=== PATIENT | male | born 1935 | race Caucasian/White ===

== ENCOUNTER 2017-01-10 10:05 | Inpatient (IN) | payer OTHER ==
--- NOTE | 2017-01-09 21:51 | GHP ---
[f rep st] PREOP HISTORY AND PHYSICAL DATE OF ADMISSION: 01/10/2017 POSTOPERATIVE DIAGNOSIS: Left lower extremity chronic wound. HISTORY OF PRESENT ILLNESS: The patient is an 81-year-old man, who recently moved to [place] from [place]. He has had a chronic wound of his left foot for greater than 1 year. He has had multiple hospital admissions for cellulitis, requiring IV antibiotics. He had an angiogram in April 2016, which showed a lesion of the left SFA and popliteal arteries with less than 50% stenosis, occlusion of the PT and AT with reconstitution of the DP and PT pulses in the foot via the peroneal. He also has previously reported ABIs. MICHEL on the left is 0.59 and TBI of 0.33 and has been diagnosed with peripheral vascular disease. Most recently, he was admitted to hospital in [place] on December 12, 2016, due to altered mental status thought to be stemming from foot infection. He completed a course of IV antibiotics. He was told by a vascular surgeon that he needed an amputation, and his family chose to delay this until he move d out to [place]. Today, he denies any fevers or chills. He denies any pain to the area. He has significant peripheral neuropathy. His daughter denies any change in his health over the last week. PAST MEDICAL HISTORY: Memory loss, CHF, aortic stenosis, type 2 diabetes, chronic kidney disease, a trial fibrillation, on chronic anticoagulation, BPH, hypertension, GERD, peripheral vascular disease . 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 ALLERGIES: Codeine. FAMILY HISTORY: Noncontributory to wound. SOCIAL HISTORY: He is a former smoker. No alcohol or recreational drug use. He lives at [facility]. He has a daughter is very involved in his care. He recently moved from [place] to be close to family. REVIEW OF SYSTEMS: The patient has memory loss and is unable to give an accurate review of systems. PHYSICAL EXAMINATION: GENERAL: Well-developed, well-nourished, elderly man, in no acute distress, accompanied by daughter. HEENT: Normocephalic, atraumatic. No hearing deficits. Pupils equal and round. No scleral icterus. Mucous membranes moist. NECK: Trachea midline. RESPIRATORY: No inc reased work of breathing. Clear to auscultation bilaterally. CARDIOVASCULAR: 1+ peripheral edema left lower extremity. Unable to palpate PT and DP pulses on the left lower extremity, dopplerable. SKIN: Significant wound over the dorsum of his left lower extremity with necrosis of the left 2nd toe. There is also disarticulation of the toe at the PIP joint. There is a foul odor to the wound and significant slough and eschar in the base. There is a mild amount of surrounding erythema. He is nontender. PSYCHIATRIC: Very pleasant. Mood and affect normal. NEUROLOGIC: Significant memor y loss. Unable to answer questions appropriately. MUSCULOSKELETAL: Wheelchair bound. Right BKA. IMPRESSION AND PLAN: The patient is an 81-year-old man with extensive left lower extremity wound se condary to peripheral vascular disease. He will require operative debridement of the wound. At thi s time, we recommend transmetatarsal amputation, but it is very likely that he would require a below -the-knee amputation. His daughter would like to attempt limb salvage at this point. We will take him to the operating room for left transmetatarsal amputation. Risks were discussed including, but not limited to, heart attack, stroke, blood clots, or . We also discussed risk of infection, b leeding, delayed wound healing, or need for additional amputation. His daughter understands the ris ks, and they both would like to proceed. He will also need to be off anticoagulation for the proced ure. This will be an inpatient procedure. The patient was additionally seen by Dr. Stefanie Vuong. /[id number]/MODL
[2017-01-10] MEDS ORDERED: ceFAZolin 2 GM/DEXTROSE 100 ML IV ONE (10:30)
[2017-01-10] MEDS ORDERED: NS 1,000 ML IV ONE (10:48)
[2017-01-10] MEDS ORDERED: LIDOCAINE 1% 2 ML INJ ID PRN (10:48)
[2017-01-10 11:23] LABS: % IMMATURE GRANULYOCYTES 0.7 % (0.0-1.1); ABSOLUTE IMMATURE GRANULOCYTES 0.06 10^3/uL (0.00-0.10); ADD DIFF? NO; ADD MORPH? NO; ADD SCAN? NO; ATYPICAL LYMPHOCYTE FLAG 0 (0-99); FRAGMENT RBC FLAG 0 (0-99); HEMATOCRIT 30.9 % (40.0-51.0); HEMOGLOBIN 9.6 g/dL (13.7-17.5); LEFT SHIFT FLG 20 (0-99); LIPEMIA HEMOLYSIS FLAG 80 (0-99); MEAN CELL HEMOGLOBIN 26.2 pg (27.9-34.1); MEAN CELL HEMOGLOBIN CONCENTR. 31.1 g/dL (32.4-36.7); MEAN CELL VOLUME 84.4 fL (81.5-99.8); MEAN PLATELET VOLUME 9.9 fL (8.7-11.7); PLATELET CLUMPS FLAG 0 (0-99); PLATELET COUNT 160 10^3/uL (150-400); RED BLOOD CELL COUNT 3.66 10^6/uL (4.40-6.38); RED CELL DISTRIBUTION WIDTH 15.7 % (11.5-15.2)
--- NOTE | 2017-01-10 11:23 | PDHPUP ---
History & Physical Update H&P update statement: This history and physical update is based on an assessment of the patient which was completed after admission or registration (within 24 hours), but prior to the surgery/procedure. H&P update: H&P reviewed & patient examined H&P changes: stopped warfarin
[2017-01-10] MEDS ORDERED: BUPIVACAINE 0.5% 30 ML SDV ONE (11:29)
[2017-01-10 11:30] LABS: INR 1.69 (0.83-1.16); PROTIME(PATIENT) 19.9 SEC (12.0-15.0)
--- NOTE | 2017-01-10 11:37 | PDANEPAE ---
ANE History of Present Illness here for left foot tm amputation ANE Past Medical History - Cardiovascular History Hx Hypertension: Yes Hx Arrhythmias: Yes Hx Coronary Artery / Peripheral Vascular Disease: Yes Hx CHF / Valvular Disease: Yes Cardiovascular History Comment: moderate - Pulmonary History Hx COPD: No Hx Asthma/Reactive Airway Disease: No Hx Recent Upper Respiratory Infection: No Hx Oxygen in Use at Home: No Hx Sleep Apnea: No - Neurologic History Hx Cerebrovascular Accident: No Hx Seizures: No Hx Dementia: Yes - Endocrine History Hx Diabetes: Yes Hypothyroid: No Hyperthyroid: No Obesity: mild - Renal History Hx Renal Disorders: Yes - Liver History Hx Hepatic Disorders: No ANE Review of Systems - Exercise capacity Exercise capacity: <4 METS ANE Patient History - Allergies Allergies/Adverse Reactions: codeine Allergy (Verified 01/09/17 17:31) - Home Medications Home Medications: ACIDOPHILUS 01/09/17 [Last Taken 01/09/17] Aspirin 325 mg (*) 01/09/17 [Last Taken Unknown] Atorvastatin Calcium 01/09/17 [Last Taken 01/09/17] Donepezil HCl 01/09/17 [Last Taken 01/09/17] Furosemide 01/09/17 [Last Taken 01/09/17] GABAPENTIN 01/09/17 [Last Taken Unknown] GLIPIZIDE 01/09/17 [Last Taken 01/09/17] Herbals/Supplements -Info Only 01/09/17 [Last Taken 01/09/17] Lidocaine 2% 01/09/17 [Last Taken Unknown] Lubricant 0.5-0.9% Eye Drops 01/09/17 [Last Taken Unknown] Melatonin 01/09/17 [Last Taken Unknown] Metoprolol Tartrate 01/09/17 [Last Taken Unknown] Nystatin Powder 01/09/17 [Last Taken Unknown] Oxycodone HCl 01/09/17 [Last Taken 01/09/17] Polyethylene Glycol 3350 01/09/17 [Last Taken 01/09/17] Potassium Chloride 01/09/17 [Last Taken 01/09/17] Ventolin Hfa Inhaler 01/09/17 [Last Taken Unknown] Warfarin Sodium 01/09/17 [Last Taken 01/06/17] hydrALAZINE 01/09/17 [Last Taken 01/09/17] - NPO status NPO Since - Liquids (Date): 01/09/17 NPO Since - Liquids (Time): 23:00 NPO Since - Solids (Date): 01/09/17 NPO Since - Solids (Time): 23:00 ANE Labs/Vital Signs - Labs Result Diagrams: 01/10/17 10:59 01/10/17 10:54 - Vital Signs Blood Pressure: 120/69 Heart Rate: 90 Respiratory Rate: 16 O2 Sat (%): 92 Height: 180.34 cm Weight: 93.168 kg ANE Physical Exam - Airway Neck exam: FROM Mouth exam: dentures - Pulmonary Pulmonary: no respiratory distress - Cardiovascular Cardiovascular: irregularly irregular - ASA Status ASA Status: III ANE Anesthesia Plan Anesthesia Plan: general endotracheal anesthesia
[2017-01-10 11:39] LABS: ANION GAP 10 mEq/L (8-16); CALCIUM 9.5 mg/dL (8.5-10.4); CARBON DIOXIDE 24 mEq/l (22-31); CHLORIDE 99 mEq/L (97-110); CREATININE 1.5 mg/dL (0.7-1.3); GLOMERULAR FILTRATION RATE 45; GLUCOSE 115 mg/dL (70-100); POTASSIUM 4.7 mEq/L (3.5-5.2); SODIUM 133 mEq/L (134-144)
[2017-01-10] MEDS ORDERED: PROPOFOL/EMULSION 500 MG/50 ML BOTTLE IV ONE (12:06)
[2017-01-10] MEDS ORDERED: fentaNYL 100 MCG/2 ML INJ ONE ×6 (12:06→14:19)
[2017-01-10] MEDS ORDERED: NALOXONE HCL 0.4 MG/ML INJ IVP PRN ×2 (12:53→13:48)
--- NOTE | 2017-01-10 12:55 | POSTOPPROG ---
Post Op Note Date of Operation: 01/10/17 Surgeon: Stefanie Vuong Quality Systems Engineer: yoandy Anesthesiologist: mame Anesthesia: GET(General Endotracheal) Pre-op Diagnosis: LLE chronic wound, PVD Post-op Diagnosis: same Indication: 81yo M with chronic LLE ulcer, no arterial bypass options Procedure: L TMA Findings: large dorsal foot ulcer. Inf/Abcess present in the surg proc area at time of surgery?: Yes Depth: Deep Incisional (Fascial) EBL: 50-100 Drains: Wound Vac Specimen(s): L TMA Bone margin Culture
[2017-01-10] MEDS ORDERED: ACETAMINOPHEN 325 MG TAB PO PRN (12:57)
[2017-01-10] MEDS ORDERED: diphenhydrAMINE 25 MG CAP PO PRN (12:57)
[2017-01-10] MEDS ORDERED: ONDANSETRON DISINTEGRATING 4 MG TAB PO PRN (12:57)
[2017-01-10] MEDS ORDERED: ONDANSETRON 4 MG/2 ML VIAL IVP PRN (12:57)
[2017-01-10] MEDS ORDERED: D50W 25 GM/50 ML SYR IVP PRN (12:59)
[2017-01-10] MEDS ORDERED: D10W 250 ML BAG IV PRN (13:20)
[2017-01-10] MEDS ORDERED: HYDROmorphONE/DILAUDID 1 MG/ML SYR ONE ×2 (13:29→14:42)
[2017-01-10] MEDS: fentaNYL 100 MCG/2 ML INJ IVP PRN ×6 (13:35→15:00)
[2017-01-10] MEDS ORDERED: HYDROmorphONE/DILAUDID 1 MG/ML SYR IVP PRN (13:48)
[2017-01-10] MEDS: HYDROmorphONE/DILAUDID 1 MG/ML SYR IVP PRN ×8 (13:55→20:15)
[2017-01-10] MEDS: HYDROCODONE/APAP 5/325 TAB PO PRN ×2 (15:22→20:28)
--- NOTE | 2017-01-10 15:47 | CPEKG ---
Heart Rate: 92 RR Interval: 652 QRSD Interval: 116 QT Interval: 372 QTC Interval: 461 QRS Eudora: -48 T Wave Eudora: 122 EKG Severity - ABNORMAL ECG - EKG Impression: ATRIAL FIBRILLATION, V-RATE 69-104 EKG Impression: LVH WITH IVCD, LAD AND SECONDARY REPOL ABNRM Electronically Signed By: Sha Deng 10-Jan-2017 16:56:03
[2017-01-10] MEDS: DEXMEDETOMIDINE HCL 400 MCG in NS 100 ML IV SCH ×2 (16:20→21:13)
[2017-01-10] MEDS: INSULIN LISPRO 100 UNIT/ML SC SCH (16:58)
--- NOTE | 2017-01-10 17:37 | SOAPPROG ---
SOCON[facility] Progress Note Assessment/Plan: Assessment: I anticipate this to be an inpatient procedure due to wound vac therapy, as well as multiple comorbidities such as CHF, aortic stenosis, atrial fibrillation , type 2 DM, etc. Objective: Vital Signs Temp Pulse Resp BP Pulse Ox 37.2 C 115 H 16 111/82 H 95 01/10/17 13:16 01/10/17 13:16 01/10/17 14:55 01/10/17 14:46 01/10/17 15:11 Microbiology 01/10/17 12:51 Gram Stain - Final Foot - Bone Laboratory Results 01/10/17 10:59 01/10/17 10:54 01/09/17 01/10/17 01/11/17 05:59 05:59 05:59 Intake Total 50 Balance 50 PT 19.9 SEC (12.0-15.0) H 01/10/17 10:57 INR 1.69 (0.83-1.16) H 01/10/17 10:57 ICD10 Worksheet Patient Problems: Problems Problem Status Onset Chronic wound of extremity Acute - ICD10 Problem Qualifiers (1) Chronic wound of extremity
[2017-01-10] MEDS ORDERED: CARBOXYMETHYLCELLULOSE SODIUM EACHEYE PRN (19:02)
[2017-01-10] MEDS ORDERED: LIDOCAINE 2% JELLY 5 ML TUBE TP PRN (19:02)
[2017-01-10] MEDS ORDERED: CARBOXYMETHYLCELLULOSE 0.5% 0.4 ML DROPERETTE EACHEYE PRN (19:12)
[2017-01-10] MEDS ORDERED: CHOLECALCIFEROL VIT D3 50,000 UNIT CAP PO SCH (19:15)
[2017-01-10] MEDS ORDERED: NS 1,000 ML IV SCH (20:15)
[2017-01-10] MEDS: DONEPEZIL HCL 5 MG TAB PO SCH (20:29)
[2017-01-10] MEDS ORDERED: NON-FORMULARY NEW DRUG (Donepezil Hcl [Aricept] 10 MG) PO SCH (21:00)
[2017-01-10] MEDS ORDERED: METOPROLOL TARTRATE 25 MG TAB PO SCH (21:00)
--- NOTE | 2017-01-10 21:39 | GCON ---
[f rep st] CONSULTATION CONSULTING QUESTION: Medical management. HISTORY OF PRESENT ILLNESS: This is an 81-year-old male, recently situated for care at [facility] with a history of peripheral vascular disease, presenting today for lower extremity amp utation. Patient has had a chronic left lower extremity wound that has not been appropriately treat able by medical management. It was decided early December 2016 at a hospital in [place], that the león ent would best be suited with amputation. Patient delayed this procedure until moving to [place]. Prior to the operating room today patient was denying any fevers or chills, shortness of breath or c hest pain. Postoperative was experiencing marked pain of the surgical leg, denied chest pain, shortness of dajuan th, abdominal discomfort. PAST MEDICAL HISTORY: 1. Peripheral vascular disease. 2. Hypertension. 3. Type 2 diabetes. 4. Chronic kidney disease. 5. Atrial fibrillation on chronic anticoagulation. 6. BPH. 7. Aortic stenosis. 8. CHF. 9. Memory loss. FAMILY HISTORY: Positive for diabetes. SOCIAL HISTORY: Negative for active tobacco. No alcohol or illicit drugs. Resides at [facility]. REVIEW OF SYSTEMS: A 10-point review of systems is negative with the exception of that reported in the HPI. PHYSICAL EXAMINATION: VITAL SIGNS: Blood pressure is 94/42, preop patient is 120-130 systolic , he art rate is in the 50s, respiratory rate 27, saturating 100% on 2 L, 36.5. GENERAL: This is an eld erly male who appears sedated. HEENT: Notable for dry mucous membranes. Eye exam is negative for a ny icterus. CARDIAC: Patient is irregular with a systolic murmur. PULMONARY: Diminished breath s ounds at bilateral bases. Otherwise clear. GASTROINTESTINAL: Positive bowel sounds. ABDOMEN: So ft and nontender. MUSCULOSKELETAL: Patient has a [id number] amputation on the right. His left foot is in a post surgical boot. No edema is noted of either lower extremity. SKIN: Patient has s cattered bruising, no rashes are appreciated. NEUROLOGIC: He is sedated post anesthesia. DATA: White count 8.9, hematocrit 30.9, platelets of 160, sodium 133, creatinine 1.5, blood glucose of 115, BUN is 43, INR is 1.69. EKG, which I personally reviewed and interpreted, shows atrial fibrillation with interventricular co nduction delay. No acute ST-T changes are appreciated. ASSESSMENT AND PLAN: This is an 81-year-old male, status post transmetatarsal amputation of the lef t foot with a wound VAC. 1. Peripheral vascular disease. Patient is status post left transmetatarsal amputation. Wound VAC is in place. Primary management per Dr. Vuong and the Surgical Team. Will continue with the wound care for the wound VAC and await culture data from intraoperative specimens. Pain control currentl y with IV pain medications and a Precedex drip. 2. Atrial fibrillation. Patient is currently rate controlled. We will continue his home dosing of anticoagulation, check an INR in the morning. I am holding his beta eliud as his heart rates are well controlled currently and his blood pressures are low with systolics in the 90s. I suspect thi s is from the Precedex and as we wean that we can safely reinitiate his home beta blockade. 3. Hyponatremia acute. Suspect this may be volume related as the patient's BUN is also up. Will st art gentle hydration with normal saline overnight as patient is sedated and likely will have little p.o. intake and recheck a BMP in the morning additionally holding his home dosing of Lasix and potas sium. 4. Hypotension. Again patient's blood pressures were normal intraoperatively and lower after the i nitiation of Precedex. I suspect it is effect of the medication. We are starting a normal saline, a nd can follow his pressures overnight, MAPS are in the 50s and 60s currently. 5. Memory loss/mild cognitive impairment. Will continue patient's Aricept. 6. Diabetes. Will continue patient's glipizide daily as well as sliding scale insulin as needed. 7. Prophylaxis per surgery. 8. Diet, diabetic when patient is more alert. DISPOSITION: I expect him greater than 2 midnights as the patient is requiring postoperative recove ry time from his transmetatarsal amputation. Thank you for the consultation. I have discussed the case with Dr. Vuong. [facility] jean-paul horotn along and help manage patient's medical comorbidities. /[id number]/MODL
[2017-01-11] MEDS: DEXMEDETOMIDINE HCL 400 MCG in NS 100 ML IV SCH (01:13)
[2017-01-11] MEDS: HYDROCODONE/APAP 5/325 TAB PO PRN ×4 (01:59→21:48)
[2017-01-11 06:15] LABS: ABSOLUTE IMMATURE GRANULOCYTES 0.05 10^3/uL (0.00-0.10); ADD DIFF? NO; ADD MORPH? NO; ADD SCAN? NO; ATYPICAL LYMPHOCYTE FLAG 0 (0-99); FRAGMENT RBC FLAG 0 (0-99); HEMATOCRIT 25.9 % (40.0-51.0); HEMOGLOBIN 7.7 g/dL (13.7-17.5); LEFT SHIFT FLG 20 (0-99); LIPEMIA HEMOLYSIS FLAG 70 (0-99); MEAN CELL HEMOGLOBIN 25.9 pg (27.9-34.1); MEAN CELL HEMOGLOBIN CONCENTR. 29.7 g/dL (32.4-36.7); MEAN CELL VOLUME 87.2 fL (81.5-99.8); MEAN PLATELET VOLUME 9.6 fL (8.7-11.7); PLATELET CLUMPS FLAG 10 (0-99); PLATELET COUNT 135 10^3/uL (150-400); RED BLOOD CELL COUNT 2.97 10^6/uL (4.40-6.38); RED CELL DISTRIBUTION WIDTH 15.7 % (11.5-15.2)
[2017-01-11 06:25] LABS: INR 1.94 (0.83-1.16); PROTIME(PATIENT) 22.3 SEC (12.0-15.0)
[2017-01-11 06:36] LABS: ANION GAP 9 mEq/L (8-16); CALCIUM 8.8 mg/dL (8.5-10.4); CARBON DIOXIDE 24 mEq/l (22-31); CHLORIDE 105 mEq/L (97-110); CREATININE 1.3 mg/dL (0.7-1.3); GLOMERULAR FILTRATION RATE 53; GLUCOSE 122 mg/dL (70-100); POTASSIUM 4.3 mEq/L (3.5-5.2); SODIUM 138 mEq/L (134-144)
[2017-01-11] MEDS: POLYETHYLENE GLYCOL 3350 17 GM PKT PO SCH (07:33)
[2017-01-11] MEDS: INSULIN LISPRO 100 UNIT/ML SC SCH ×3 (07:39→18:08)
[2017-01-11] MEDS: ATORVASTATIN CALCIUM 40 MG TAB PO SCH (07:40)
[2017-01-11] MEDS: glipiZIDE 5 MG TAB PO SCH (07:40)
[2017-01-11] MEDS: FERROUS SULFATE 325 MG TAB PO SCH (07:40)
[2017-01-11] MEDS: HYDROmorphONE/DILAUDID 1 MG/ML SYR IVP PRN ×3 (08:51→15:21)
[2017-01-11] MEDS ORDERED: POTASSIUM CL 20 MEQ TAB PO SCH (09:00)
[2017-01-11] MEDS ORDERED: FUROSEMIDE 40 MG TAB PO SCH (09:00)
--- NOTE | 2017-01-11 09:04 | GOP ---
[f rep st] OPERATIVE REPORT DATE OF OPERATION: 01/10/2017 SURGEON: Stefanie Vuong MD EQUIPMENT MAINTENANCE TECH: REESE Beltran. ANESTHESIA: General. ANESTHESIOLOGIST: Ismael Caputo MD. PREOPERATIVE DIAGNOSIS: Peripheral vascular disease and necrosis of left 2nd toe with wound over dorsum of foot. POSTOPERATIVE DIAGNOSIS: Peripheral vascular disease and necrosis of left 2nd toe with wound over dorsum of foot. PROCEDURE PERFORMED: Transmetatarsal amputation left foot and application of wound VAC. FINDINGS: digital arteries were bleeding. SPECIMENS: Mid foot amputation. Margins for pathology and microbiology. ESTIMATED BLOOD LOSS: 100 cc. INDICATIONS: The patient is an 81-year-old, with multiple medical problems, who recently moved from [place]. He had been working with vascular surgery there and did not have revascularization options. He had a wound on his foot; however, by the time he moved to [place] the wound was more significant and the toe became disarticulated and black. He already has a right below-knee amputation and we are trying to do a limb salvage to assist him with transfers. He understands that a below or above-knee amputation may be needed. DESCRIPTION OF PROCEDURE: The patient was brought into the operating room, placed supine on the table, and general anesthesia was administered. His left foot and leg were prepped and draped in the usual sterile fashion. I placed a glove over the toes and the wound. The skin on the plantar surface on his foot was very healthy. I created a flap that started just beneath the toes and I brought this around over the dorsum of the foot and included a portion of the wound. I used electrocautery to dissect down through the subcutaneous tissues. The digital arteries were patent. Hemostasis was achieved. I used a periosteal elevator to elevate the tissues away from the bone. I used a saw to transect each of the bones and I submitted this to Pathology. I obtained additional margin on the 1st metatarsal and inked this and sent this to Pathology and I sent a margin of the 2nd metatarsal for microbiology. The tendons were trimmed. The wound was irrigated. I used a vilma rasp to soften the edges of the bone. The deep layer was closed with 2-0 Vicryl. I attempted to reapproximate the skin; however, there the skin was fragile on the dorsum of his foot and the sutures were pulling away. I used a currette to debride the dorsum of his foot. I placed a wound VAC over his foot. He was awakened in the operating room, extubated, transferred to PACU in stable condition. /[id number]/MODL MTDD
[2017-01-11] MEDS: WARFARIN SODIUM 2.5 MG TAB PO SCH (15:51)
--- NOTE | 2017-01-11 15:55 | HOSPPROG ---
Hospitalist Progress Note Assessment/Plan: 81 yo M with h/o PVD presenting for lower extremity amputation in setting of chronic LLE wound # PVD: s/p L TMA, wound vac in place, has prior R BKA. Pain is an issue, still requiring IV narcotic. PT/OT involved # acute encephalopathy: has had issues with agitated delerium in setting of recent surgery, pain/pain medications. Improved this am. Monitoring closely, working on redirecting # chronic a fib: rate controlled, monitoring, continued on home meds including his usual AC--INR currently 1.9 # hyponatremia: 2/2 volume depletion, resolved # hypotension: as above, resolved # dementia: at baseline, as above has been complicated by delirium # dm2: continue glipizide # anemia: monitoring in post op setting # IP Patient new to my care. Old records reviewed and summarized as above. Care plan reviewed with Dr. Cheung and multidisciplinary team on rounds. Subjective: patient having increased pain in his foot this am, was agitated and confused overnight but better this am Objective: Vital Signs Temp Pulse Resp BP Pulse Ox 36.4 C 89 20 120/56 L 100 01/11/17 07:24 01/11/17 14:40 01/11/17 07:24 01/11/17 07:24 01/11/17 14:40 Microbiology 01/10/17 12:51 Gram Stain - Final Foot - Bone 01/10/17 12:51 Mycobacterial Smear (SANCHEZ) - Final Foot - Bone Laboratory Results 01/11/17 06:00 01/11/17 06:00 01/10/17 01/11/17 01/12/17 05:59 05:59 05:59 Intake Total 1355.2 Output Total 300 Balance 1055.2 PT 22.3 SEC (12.0-15.0) H 01/11/17 06:00 INR 1.94 (0.83-1.16) H 01/11/17 06:00 awake alert nad anicteric op clear rrr no mrg cta b soft nt nd left foot in boot warm dry well perfused cognitive deficits noted but appropriate calm interactive ICD10 Worksheet Patient Problems: Problems Problem Status Onset Chronic wound of extremity Acute
--- NOTE | 2017-01-11 16:23 | SOAPPROG ---
SOAP Progress Note Assessment/Plan: Assessment: WOUND OK/ AFEBRILE/ DEMENTED Plan:PER IM 01/11/17 16:22 Objective: Vital Signs Temp Pulse Resp BP Pulse Ox 36.4 C 89 20 120/56 L 100 01/11/17 07:24 01/11/17 14:40 01/11/17 07:24 01/11/17 07:24 01/11/17 14:40 Microbiology 01/10/17 12:51 Gram Stain - Final Foot - Bone 01/10/17 12:51 Mycobacterial Smear (SANCHEZ) - Final Foot - Bone Laboratory Results 01/11/17 06:00 01/11/17 06:00 01/10/17 01/11/17 01/12/17 05:59 05:59 05:59 Intake Total 1355.2 Output Total 300 Balance 1055.2 PT 22.3 SEC (12.0-15.0) H 01/11/17 06:00 INR 1.94 (0.83-1.16) H 01/11/17 06:00 ICD10 Worksheet Patient Problems: Problems Problem Status Onset Chronic wound of extremity Acute
[2017-01-11] MEDS: oxyCODONE IR 5 MG TAB PO PRN (16:44)
[2017-01-11] MEDS: DONEPEZIL HCL 5 MG TAB PO SCH (20:46)
[2017-01-12] MEDS: HYDROCODONE/APAP 5/325 TAB PO PRN ×3 (05:09→17:32)
[2017-01-12] MEDS: HYDROmorphONE/DILAUDID 1 MG/ML SYR IVP PRN ×4 (05:52→20:17)
[2017-01-12] MEDS: oxyCODONE IR 5 MG TAB PO PRN ×3 (06:49→20:18)
[2017-01-12] MEDS: ATORVASTATIN CALCIUM 40 MG TAB PO SCH (08:33)
[2017-01-12] MEDS: FERROUS SULFATE 325 MG TAB PO SCH (08:35)
[2017-01-12] MEDS: glipiZIDE 5 MG TAB PO SCH (08:35)
[2017-01-12] MEDS: INSULIN LISPRO 100 UNIT/ML SC SCH ×3 (08:41→18:39)
[2017-01-12] MEDS: POLYETHYLENE GLYCOL 3350 17 GM PKT PO SCH (09:25)
[2017-01-12 10:36] LABS: % IMMATURE GRANULYOCYTES 0.9 % (0.0-1.1); ABSOLUTE IMMATURE GRANULOCYTES 0.06 10^3/uL (0.00-0.10); ADD DIFF? NO; ADD MORPH? NO; ADD SCAN? NO; ATYPICAL LYMPHOCYTE FLAG 0 (0-99); FRAGMENT RBC FLAG 0 (0-99); HEMATOCRIT 27.9 % (40.0-51.0); HEMOGLOBIN 8.6 g/dL (13.7-17.5); LEFT SHIFT FLG 0 (0-99); LIPEMIA HEMOLYSIS FLAG 80 (0-99); MEAN CELL HEMOGLOBIN 26.1 pg (27.9-34.1); MEAN CELL HEMOGLOBIN CONCENTR. 30.8 g/dL (32.4-36.7); MEAN CELL VOLUME 84.8 fL (81.5-99.8); MEAN PLATELET VOLUME 9.7 fL (8.7-11.7); PLATELET CLUMPS FLAG 0 (0-99); PLATELET COUNT 164 10^3/uL (150-400); RED BLOOD CELL COUNT 3.29 10^6/uL (4.40-6.38); RED CELL DISTRIBUTION WIDTH 15.4 % (11.5-15.2)
[2017-01-12 10:46] LABS: INR 1.96 (0.83-1.16); PROTIME(PATIENT) 22.4 SEC (12.0-15.0)
--- NOTE | 2017-01-12 13:19 | SOAPPROG ---
SOAP Progress Note Assessment/Plan: Assessment: WOUND OK/ AFEBRILE/ DEMENTED Plan:PER IM 01/11/17 16:22 01/12/17 13:18 PAIN CONTROL GOOD/ WOUND VAC IN PLACE/ AFEBRILE/ CONTINUE LOCAL CARE/ POOR PEDAL ART FLOW Objective: Vital Signs Temp Pulse Resp BP Pulse Ox 36.8 C 85 18 145/73 H 96 01/12/17 07:31 01/12/17 07:31 01/12/17 07:31 01/12/17 07:31 01/12/17 07:31 Microbiology 01/10/17 12:51 Gram Stain - Final Foot - Bone 01/10/17 12:51 Mycobacterial Smear (SANCHEZ) - Final Foot - Bone Laboratory Results 01/12/17 10:22 01/11/17 06:00 01/11/17 01/12/17 01/13/17 05:59 05:59 05:59 Intake Total 1355.2 900 Output Total 300 1050 125 Balance 1055.2 -150 -125 PT 22.4 SEC (12.0-15.0) H 01/12/17 10:22 INR 1.96 (0.83-1.16) H 01/12/17 10:22 ICD10 Worksheet Patient Problems: Problems Problem Status Onset Chronic wound of extremity Acute
--- NOTE | 2017-01-12 13:23 | HOSPPROG ---
Hospitalist Progress Note Assessment/Plan: 81 yo M with h/o PVD presenting for lower extremity amputation in setting of chronic LLE wound # PVD: s/p L TMA, wound vac in place, has prior R BKA. Pain is an issue, still requiring IV narcotic. PT/OT involved. # acute encephalopathy: has had issues with agitated delirium in setting of recent surgery, pain/pain medications. Improved and off of precedex currently # chronic a fib: rate controlled, monitoring, continued on home meds including his usual AC--INR currently 1.9 # hyponatremia: 2/2 volume depletion, resolved # hypotension: as above, resolved # dementia: at baseline, as above has been complicated by delirium # dm2: continue glipizide # anemia: monitoring in post op setting # IP--general surgery is primary, he likely will be a good candidate for rehab Subjective: no significant overnight events, patient is somnolent but feeling a bit better this am Objective: Vital Signs Temp Pulse Resp BP Pulse Ox 36.8 C 85 18 145/73 H 96 01/12/17 07:31 01/12/17 07:31 01/12/17 07:31 01/12/17 07:31 01/12/17 07:31 Microbiology 01/10/17 12:51 Gram Stain - Final Foot - Bone 01/10/17 12:51 Mycobacterial Smear (SANCHEZ) - Final Foot - Bone Laboratory Results 01/12/17 10:22 01/11/17 06:00 01/11/17 01/12/17 01/13/17 05:59 05:59 05:59 Intake Total 1355.2 900 Output Total 300 1050 125 Balance 1055.2 -150 -125 PT 22.4 SEC (12.0-15.0) H 01/12/17 10:22 INR 1.96 (0.83-1.16) H 01/12/17 10:22 awake alert nad anicteric op clear rrr no mrg cta b soft nt nd left foot in boot warm dry well perfused cognitive deficits noted but appropriate calm interactive ICD10 Worksheet Patient Problems: Problems Problem Status Onset Chronic wound of extremity Acute
[2017-01-12] MEDS ORDERED: WARFARIN SODIUM 5 MG TAB PO SCH (15:00)
[2017-01-12] MEDS: ERTAPENEM 1 GM in NS 100 ML IV SCH (16:29)
[2017-01-12] MEDS: WARFARIN SODIUM 2.5 MG TAB PO SCH (17:28)
[2017-01-12] MEDS: DONEPEZIL HCL 5 MG TAB PO SCH (20:18)
[2017-01-13] MEDS: HYDROCODONE/APAP 5/325 TAB PO PRN ×3 (00:20→23:07)
[2017-01-13] MEDS: HYDROmorphONE/DILAUDID 1 MG/ML SYR IVP PRN ×5 (00:23→14:30)
[2017-01-13] MEDS: oxyCODONE IR 5 MG TAB PO PRN ×3 (05:49→21:04)
[2017-01-13] MEDS: ATORVASTATIN CALCIUM 40 MG TAB PO SCH (08:01)
[2017-01-13] MEDS: FERROUS SULFATE 325 MG TAB PO SCH (08:02)
[2017-01-13] MEDS: POLYETHYLENE GLYCOL 3350 17 GM PKT PO SCH (08:02)
[2017-01-13] MEDS: glipiZIDE 5 MG TAB PO SCH (08:02)
[2017-01-13] MEDS: INSULIN LISPRO 100 UNIT/ML SC SCH ×3 (08:16→17:59)
[2017-01-13] MEDS: ERTAPENEM 1 GM in NS 100 ML IV SCH (08:35)
--- NOTE | 2017-01-13 09:33 | WOCRNPDOC ---
DIMITRY Advanced Assessment Note - Skin Integrity Problem, Advanced Assess Left Heel Pressure Injury Dressing Type: Open to Air Exudate Amount: None Zoe Wound Tissue: Painful/Tender Site Measurement - Head-to-Toe Length X Width X Depth (cm): 2.5x8x0 Pressure Injury Stage: Deep Tissue Injury (DTI) Pressure Injury Present on Admit: No Skin Integrity Problem Comment: Deep Tissue injury extends from heel laterally toward the deep tissue injury on the lateral foot. Tissue is intact at this time. Left Metatarsal Head Surgical Wound Dressing Type: Black Vac Foam (x1), Wound Vac Dressing Description: Clean/Dry, Intact Exudate Amount: Minimal Exudate Characteristic(s): Serosanguinous Integumentary Issue Intervention: Dressing Changed Zoe Wound Tissue: Macerated, Denuded Wound Bed Color: [place], Red, Yellow Wound Bed Constitution: Smooth Tissue, Subcutaneous Fat Skin Integrity Problem Comment: Wound edges along medial and lateral surgical wound are wet with compromised skin and tissue out to 2 cm. Wound bed is red with minimal granulating tissue. Vac changed with Julianna DOWLING. One piece of black foam to wound bed and it was bridged up to mid mukherjee over drape. Zoe wound skin/tissue was draped and then applied to suction at -125 mm Hg continous with no leaks. Next Vac change Wed. Left Medial Ankle Pressure Injury Dressing Type: Open to Air Exudate Amount: Minimal Exudate Characteristic(s): Serosanguinous Integumentary Issue Intervention: Dressing Changed Wound Bed Constitution: Smooth Tissue Site Measurement - Head-to-Toe Length X Width X Depth (cm): 5x5x0.1 Pressure Injury Stage: Deep Tissue Injury (DTI) Pressure Injury Present on Admit: No Skin Integrity Problem Comment: Evolving Deep tissue injury on medial malleolus prominence. This area is opening and is currently presenting as a partial thickness opening with areas of DTI still intact. Covered with [employer]. Offloading boot applied to entire foot. Left Lateral Foot Pressure Injury Dressing Type: Open to Air Exudate Amount: None Integumentary Issue Intervention: Dressing Applied Site Measurement - Head-to-Toe Length X Width X Depth (cm): 5.7x4.3x0 Pressure Injury Stage: Deep Tissue Injury (DTI) Pressure Injury Present on Admit: No Skin Integrity Problem Comment: Tissue intact at this time. Will recheck on Fri. during vac change. Reported all findings to BRAD LatriceMalcolm and Julianna DOWLING was present for exam. Left Calf Dressing Type: Allevyn Life Exudate Amount: Minimal Exudate Characteristic(s): Serosanguinous Integumentary Issue Intervention: Visualized Under Dressing Site Measurement - Head-to-Toe Length X Width X Depth (cm): 7x4x0.1 Skin Integrity Problem Comment: Partial thickness wound of unknown etiology. No sign of infection. No concerns.
[2017-01-13] MEDS ORDERED: HYDROmorphONE/DILAUDID 1 MG/ML SYR IVP ONE (10:00)
[2017-01-13 12:04] LABS: INR 2.36 (0.83-1.16)
[2017-01-13] MEDS: PIPERACILLIN/TAZO 3.375 GM/DEX 50 ML IV SCH ×3 (12:16→23:07)
--- NOTE | 2017-01-13 12:17 | SOAPPROG ---
SOAP Progress Note Assessment/Plan: Assessment: 81yo M POD #3 s/p L TMA, multiple comorbidities including dementia, afib, , traumatic R BKA Pain significantly worse with dressing change Wound vac change MWF - changed today with Lucinda WOCN New DTI medial malleolus, lateral foot and heel - Must wear offloading boot at all times Culture with strep, proteus and pseudomonas - on Zosyn Comorbidities managed by hospitalists Path pending Discussed c Dr. Victoria S: having pain in left heel. slept well O: laying in bed, comfortable, NAD No increased WOB R BKA no wounds No peripheral edema LLE New DTI left medial malleolus, lateral foot and heel. When I entered the room, offloading boot was in the bed but not in place Wound vac removed. No active bleeding. No exposed bone. Granulation tissue in the base, but color was not robust red, more of a dusky skinner/pink. Pain in L heel during vac change Objective: Vital Signs Temp Pulse Resp BP Pulse Ox 36.8 C 83 18 140/73 H 91 L 01/13/17 08:00 01/13/17 08:00 01/13/17 08:00 01/13/17 08:00 01/13/17 08:00 Microbiology 01/10/17 12:51 Gram Stain - Final Foot - Bone 01/10/17 12:51 Mycobacterial Smear (SANCHEZ) - Final Foot - Bone Laboratory Results 01/12/17 10:22 01/11/17 06:00 01/12/17 01/13/17 01/14/17 05:59 05:59 05:59 Intake Total 900 1360 Output Total 1050 1050 Balance -150 310 PT 26.0 SEC (12.0-15.0) H 01/13/17 11:30 INR 2.36 (0.83-1.16) H 01/13/17 11:30 ICD10 Worksheet Patient Problems: Problems Problem Status Onset Chronic wound of extremity Acute - ICD10 Problem Qualifiers (1) Chronic wound of extremity
[2017-01-13] MEDS ORDERED: TEARS/DEXTRAN 70/HYPROMELLOSE 15 ML OPHT.BTL EACHEYE PRN (13:39)
--- NOTE | 2017-01-13 13:43 | HOSPPROG ---
Hospitalist Progress Note Assessment/Plan: 81 yo M with h/o PVD presenting for lower extremity amputation in setting of chronic LLE wound # PVD: s/p L TMA, wound vac in place, has prior R BKA. Pain is an issue, still requiring IV narcotic. PT/OT involved. # chronic lower extremity wound: now s/p amputation as above but wound growing pseudomonas, proteus and strep--transitioned from invanz to zosyn for pseudomonal coverage. Given amputation unclear how long therapy should continue and will ask ID to weigh in on abx after dc. # acute encephalopathy: has had issues with agitated delirium in setting of recent surgery, pain/pain medications. Improved and largely back to baseline. # chronic a fib: rate controlled, monitoring, continued on home meds including his usual AC--INR has been subtherapeutic, will ask pharmacy to manage # hyponatremia: 2/2 volume depletion, resolved # hypotension: as above, resolved # dementia: at baseline, as above has been complicated by delirium # dm2: continue glipizide # anemia: monitoring in post op setting # IP--general surgery is primary, he likely will be a good candidate for rehab Subjective: no significant overnight events, patient notes pain is still poorly controlled, no other issues, eating well Objective: Vital Signs Temp Pulse Resp BP Pulse Ox 36.8 C 83 18 140/73 H 91 L 01/13/17 08:00 01/13/17 08:00 01/13/17 08:00 01/13/17 08:00 01/13/17 08:00 Microbiology 01/10/17 12:51 Gram Stain - Final Foot - Bone 01/10/17 12:51 Mycobacterial Smear (SANCHEZ) - Final Foot - Bone Laboratory Results 01/12/17 10:22 01/11/17 06:00 01/12/17 01/13/17 01/14/17 05:59 05:59 05:59 Intake Total 900 1360 Output Total 1050 1050 Balance -150 310 PT 26.0 SEC (12.0-15.0) H 01/13/17 11:30 INR 2.36 (0.83-1.16) H 01/13/17 11:30 awake alert nad anicteric op clear rrr no mrg cta b soft nt nd left foot in boot warm dry well perfused cognitive deficits noted but appropriate calm interactive ICD10 Worksheet Patient Problems: Problems Problem Status Onset Chronic wound of extremity Acute
[2017-01-13] MEDS ORDERED: WARFARIN SODIUM 2.5 MG TAB PO ONE (16:00)
[2017-01-13] MEDS: DONEPEZIL HCL 5 MG TAB PO SCH (20:53)
[2017-01-14] MEDS: oxyCODONE IR 5 MG TAB PO PRN ×4 (05:10→21:20)
[2017-01-14] MEDS: PIPERACILLIN/TAZO 3.375 GM/DEX 50 ML IV SCH ×3 (05:10→17:48)
[2017-01-14 05:52] LABS: INR 3.49 (0.83-1.16); PROTIME(PATIENT) 35.6 SEC (12.0-15.0)
[2017-01-14] MEDS: INSULIN LISPRO 100 UNIT/ML SC SCH ×3 (07:56→18:44)
[2017-01-14] MEDS: glipiZIDE 5 MG TAB PO SCH (08:21)
[2017-01-14] MEDS: ATORVASTATIN CALCIUM 40 MG TAB PO SCH (08:21)
[2017-01-14] MEDS: FERROUS SULFATE 325 MG TAB PO SCH (08:21)
[2017-01-14] MEDS: POLYETHYLENE GLYCOL 3350 17 GM PKT PO SCH (08:24)
--- NOTE | 2017-01-14 09:49 | SOAPPROG ---
SOAP Progress Note Assessment/Plan: Assessment: WOUND OK/ AFEBRILE/ DEMENTED Plan:PER IM 01/11/17 16:22 01/12/17 13:18 PAIN CONTROL GOOD/ WOUND VAC IN PLACE/ AFEBRILE/ CONTINUE LOCAL CARE/ POOR PEDAL ART FLOW 01/14/17 09:48 VERY COMFORTABLE TODAY/WOUND VAC IN PLACE/MARGINAL HEALING ON WOUND INSPECTION YESTERDAY/ Objective: Vital Signs Temp Pulse Resp BP Pulse Ox 36.5 C 89 14 144/73 H 93 01/13/17 23:21 01/14/17 08:00 01/14/17 08:00 01/14/17 08:00 01/14/17 08:00 Microbiology 01/10/17 12:51 Gram Stain - Final Foot - Bone Laboratory Results 01/12/17 10:22 01/11/17 06:00 01/13/17 01/14/17 01/15/17 05:59 05:59 05:59 Intake Total 1360 300 Output Total 1050 100 Balance 310 200 PT 35.6 SEC (12.0-15.0) H D 01/14/17 05:32 INR 3.49 (0.83-1.16) H 01/14/17 05:32 ICD10 Worksheet Patient Problems: Problems Problem Status Onset Chronic wound of extremity Acute
--- NOTE | 2017-01-14 11:17 | GCON ---
[f rep st] CONSULTATION INFECTIOUS DISEASE CONSULTATION DATE OF CONSULTATION: 01/14/2017 REFERRING PHYSICIAN: Sabrina Hercules MD REASON FOR CONSULTATION: Left foot wound status post amputation, for help in management regarding a ntibiotics. CHIEF COMPLAINT: Left foot wound infection. HISTORY OF PRESENT ILLNESS: This is an 81-year-old male with a past medical history signi ficant for CHF, type 2 diabetes, chronic kidney disease, hypertension, peripheral vascular disease, who apparently has had a chronic left foot infection for greater than 1 year. He has recently moved here to [place] from [place]. Apparently, he had multiple foot infections requiring antibiotics in the past. He cannot tell me what antibiotics he has been on in the past. On January 10 he underw ent transmetatarsal amputation. Cultures from that are polymicrobial with rare Proteus mirabilis, r are Pseudomonas, and rare group B strep. The pathology is pending. He was previously on Invanz. Sarah abreu is currently on Zosyn therapy and Infectious Disease is now consulted for evaluation and managemen t regarding antibiotics. REVIEW OF SYSTEMS: GENERAL: Denied any fevers or shaking chills. No headaches. EYES: No change in vision. ENT: No sore throat, difficulty swallowing, ear pain, or ear drainage. CARDIOVASCULAR: Denies any chest pain or rapid heartbeat. RESPIRATORY: Denies any shortness of breath, cough, or sputum production. ABDOMEN: No nausea, vomiting, abdominal pain, diarrhea. : Intermittent bur astrid with urination, none now. BACK: Denies any back pain. LOWER EXTREMITIES: Denies any numbnes s or tingling of the extremities. MUSCULOSKELETAL: Denies any joint pain. SKIN: As above. Rest of 10-point review of systems essentially negative, except above. PAST MEDICAL HISTORY: Significant for type 2 diabetes, chronic kidney disease, hypertension, periph eral vascular disease, GERD, atrial fibrillation, CHF, aortic stenosis, memory loss. PAST SURGICAL HISTORY: Significant for right BKA secondary to trauma, laminectomy. ALLERGIES: Codeine. FAMILY HISTORY: Reviewed and found to be noncontributory. SOCIAL HISTORY: He is a former smoker. Does not drink any alcohol. Lives at [facility]. Recently moved from [place] to [place]. MEDICATIONS: As per SEP. PHYSICAL EXAMINATION: VITAL SIGNS: Temperature current 36.5, pulse is 89, blood pressure 144/73, s aturations are 93% on room air, respiratory rate is 14. GENERAL: Patient is sitting up in the wendi r, in no acute respiratory distress. Awake, alert. HEENT: Eyes: Pupils are reactive to light. T here is no conjunctival injection noted. Oropharynx is clear. He has upper and lower dentures. No candidiasis or oral lesions. CARDIOVASCULAR: S1, S2. Irregular rate and rhythm. He has a soft s ystolic murmur present. RESPIRATORY: Sounds clear to auscultate bilaterally. No rhonchi or rales appreciated. ABDOMEN: Positive bowel sounds in all 4 quadrants. Soft, nontender, nondistended. E XTREMITIES: Right BKA with well healed incision site without erythema. Left lower extremity with a left TMA with a wound VAC in place. No erythema on the leg that I could appreciate. LABORATORY DATA: White blood cell count is 6.5, hemoglobin 8.6, platelets are 154, neutrophil count is 84%. INR 2.4. Last creatinine was 1.3. Sodium 138, potassium 4.3, chloride 105, bicarb is 24, BUN is 42, glucose is 122. Microbiology is reviewed as above. No imaging has been done. 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 PLAN: Cultures with polymicrobial organisms including Proteus, Pseudomonas, group A strep. The pat ient is currently on Zosyn. Would reassess his creatinine to see if Zosyn therapy can be bumped up. If his creatinine has improved, would ideally put him on 4.5 g q.6. We will continue antimicrobia l therapy for now. Await pathology to assess if distal margins are clear. If clear margins, then w ould likely only need a short course of therapy. Thank you very much for the opportunity to care for your patient in consultation. /[id number]/MODL
--- NOTE | 2017-01-14 13:43 | HOSPPROG ---
Hospitalist Progress Note Assessment/Plan: 81 yo M with h/o PVD presenting for lower extremity amputation in setting of chronic LLE wound. This is my first encounter, chart reviewed. D/W Dr Perry. # PVD: s/p L TMA, wound vac in place, has prior R BKA. Pain is an issue, still requiring IV narcotic. PT/OT involved. # chronic lower extremity wound: now s/p amputation as above but wound growing pseudomonas, proteus and strep--transitioned from invanz to zosyn for pseudomonal coverage. Given amputation unclear how long therapy should continue. Appreciate ID consult. Check labs. # acute encephalopathy: has had issues with agitated delirium in setting of recent surgery, pain/pain medications. Improved and largely back to baseline. # chronic a fib: rate controlled, monitoring, continued on home meds including his usual AC--INR has been subtherapeutic, pharmacy to manage # hyponatremia: 2/2 volume depletion, resolved # hypotension: as above, resolved # dementia: at baseline, as above has been complicated by delirium # dm2: continue glipizide # anemia: monitoring in post op setting # IP--general surgery is primary, he likely will be a good candidate for rehab Subjective: Up in chair. Some pain. Some confusion. Objective: Vital Signs Temp Pulse Resp BP Pulse Ox 36.5 C 89 14 144/73 H 93 01/13/17 23:21 01/14/17 08:00 01/14/17 08:00 01/14/17 08:00 01/14/17 08:00 Microbiology 01/10/17 12:51 Gram Stain - Final Foot - Bone Laboratory Results 01/12/17 10:22 01/11/17 06:00 01/13/17 01/14/17 01/15/17 05:59 05:59 05:59 Intake Total 1360 300 Output Total 1050 100 Balance 310 200 PT 35.6 SEC (12.0-15.0) H D 01/14/17 05:32 INR 3.49 (0.83-1.16) H 01/14/17 05:32 - Physical Exam Constitutional: appears nourished, chronically ill appearing, obese Eyes: PERRL, anicteric sclera, EOMI Ears, Nose, Mouth, Throat: moist mucous membranes, hearing normal, ears appear normal Cardiovascular: No JVD, No tachycardia, No bradycardia Respiratory: no respiratory distress, no rales or rhonchi, reduced air movement Gastrointestinal: No tenderness, No ascites, No guarding Skin: warm, normal color, No erythema Musculoskeletal: no joint effusions, muscular tenderness, generalized weakness Psychiatric: not anxious, not encephalopathic, poor insight, poor judgement, poor memory ICD10 Worksheet Patient Problems: Problems Problem Status Onset Chronic wound of extremity Acute
[2017-01-14] MEDS: DONEPEZIL HCL 5 MG TAB PO SCH (21:20)
[2017-01-15] MEDS: PIPERACILLIN/TAZO 3.375 GM/DEX 50 ML IV SCH ×3 (00:02→11:37)
[2017-01-15] MEDS: oxyCODONE IR 5 MG TAB PO PRN ×4 (00:48→21:41)
[2017-01-15] MEDS: HYDROmorphONE/DILAUDID 1 MG/ML SYR IVP PRN ×2 (00:48→19:54)
[2017-01-15 04:40] LABS: % IMMATURE GRANULYOCYTES 0.9 % (0.0-1.1); ABSOLUTE IMMATURE GRANULOCYTES 0.05 10^3/uL (0.00-0.10); ADD DIFF? NO; ADD MORPH? NO; ADD SCAN? NO; ATYPICAL LYMPHOCYTE FLAG 0 (0-99); FRAGMENT RBC FLAG 0 (0-99); HEMATOCRIT 26.5 % (40.0-51.0); HEMOGLOBIN 7.9 g/dL (13.7-17.5); LEFT SHIFT FLG 10 (0-99); LIPEMIA HEMOLYSIS FLAG 70 (0-99); MEAN CELL HEMOGLOBIN 25.8 pg (27.9-34.1); MEAN CELL HEMOGLOBIN CONCENTR. 29.8 g/dL (32.4-36.7); MEAN CELL VOLUME 86.6 fL (81.5-99.8); MEAN PLATELET VOLUME 9.3 fL (8.7-11.7); PLATELET CLUMPS FLAG 0 (0-99); PLATELET COUNT 170 10^3/uL (150-400); RED BLOOD CELL COUNT 3.06 10^6/uL (4.40-6.38); RED CELL DISTRIBUTION WIDTH 15.2 % (11.5-15.2)
[2017-01-15 04:53] LABS: INR 2.61 (0.83-1.16); PROTIME(PATIENT) 28.2 SEC (12.0-15.0)
[2017-01-15 05:06] LABS: ALANINE AMINOTRANSFERASE 44 IU/L (21-72); ALBUMIN 2.4 g/dL (3.5-5.0); ALKALINE PHOSPHATASE 111 IU/L (38-126); ANION GAP 10 mEq/L (8-16); ASPARTATE AMINOTRANSFERASE 38 IU/L (17-59); BILIRUBIN,TOTAL 0.7 mg/dL (0.1-1.4); CALCIUM 8.9 mg/dL (8.5-10.4); CARBON DIOXIDE 23 mEq/l (22-31); CHLORIDE 104 mEq/L (97-110); CREATININE 1.3 mg/dL (0.7-1.3); GLOMERULAR FILTRATION RATE 53; GLUCOSE 85 mg/dL (70-100); POTASSIUM 4.2 mEq/L (3.5-5.2); SODIUM 137 mEq/L (134-144)
--- NOTE | 2017-01-15 08:51 | HOSPPROG ---
Hospitalist Progress Note Assessment/Plan: Patient is a 81-year-old male who has a history of peripheral vascular disease. He had a lower extremity amputation due to a chronic lower leg extremity wound. This is my 1st encounter with the patient. Chart reviewed. Reviewed his care with Dr Burnette. *Severe PVD POD #5 for l transmetatarsal amputation for osteo On Zosyn/ had been on invanz *Chronic wound to left lower leg + pseudomonas in wound *Acute encephalopathy due to recent surgery alert and oriented during my eval has underlying dementia *afib/chronic rate controlled pharmacy managing Coumadin INR is 2.61 *Hyponatremia resolved *Hypotension resolved * DM2 glipizide *anemia trending down/ hgb 7.9/hct 26.5 due to acute illness *Plan : follow labs in a.m. Subjective: Stone has no complaints. Objective: Vital Signs Temp Pulse Resp BP Pulse Ox 36.3 C 67 18 126/62 H 92 01/15/17 07:53 01/15/17 07:53 01/15/17 07:53 01/15/17 07:53 01/15/17 07:53 Microbiology 01/10/17 12:51 Gram Stain - Final Foot - Bone Laboratory Results 01/15/17 04:30 01/15/17 04:30 01/14/17 01/15/17 01/16/17 05:59 05:59 05:59 Intake Total 300 850 Output Total 100 Balance 200 850 PT 28.2 SEC (12.0-15.0) H 01/15/17 04:30 INR 2.61 (0.83-1.16) H 01/15/17 04:30 - Physical Exam Constitutional: not in pain, chronically ill appearing Eyes: PERRL Ears, Nose, Mouth, Throat: hearing normal Respiratory: no respiratory distress Skin: other (Dr Vuong changing dressing on wound/ wound pale in color/ foul smelling) Neurologic: other (alert and oriented) Psychiatric: interacting appropriately ICD10 Worksheet Patient Problems: Problems Problem Status Onset Chronic wound of extremity Acute
[2017-01-15] MEDS: FERROUS SULFATE 325 MG TAB PO SCH (09:01)
[2017-01-15] MEDS: glipiZIDE 5 MG TAB PO SCH (09:01)
[2017-01-15] MEDS: ATORVASTATIN CALCIUM 40 MG TAB PO SCH (09:01)
--- NOTE | 2017-01-15 09:20 | WOCRNPDOC ---
DIMITRY Advanced Assessment Note - Skin Integrity Problem, Advanced Assess Left Medial Ankle Pressure Injury Dressing Type: [employer] Life Dressing Description: Clean/Dry, Intact Exudate Amount: Minimal Exudate Characteristic(s): Serosanguinous Zoe Wound Tissue: Erythema (minimal) Wound Bed Color: Red, Yellow Wound Bed Constitution: Smooth Tissue (70%), Adhered Slough (30%) Pressure Injury Stage: Deep Tissue Injury (DTI) Skin Integrity Problem Comment: Evolving Deep Tissue Injury now presenting as a partial thickness opening with approx 2.5x2.5 cm of slough around 6 oclock. Should declare itsself over the course of the next week. Left Lateral Foot Pressure Injury Dressing Type: [employer] Life Integumentary Issue Intervention: Visualized Under Dressing Pressure Injury Stage: Deep Tissue Injury (DTI) Skin Integrity Problem Comment: Still intact but deep red/purple evolving deep tissue injury. Fluctuant. Left Heel Pressure Injury Skin Integrity Problem Comment: Didnt visualize heel wound during this assessment. Left Metatarsal Head Surgical Wound Skin Integrity Problem Comment: Vac changed by Julianna DOWLING and Dr. Vuong. Wound care will round again Friday for vac change.
[2017-01-15] MEDS: INSULIN LISPRO 100 UNIT/ML SC SCH ×3 (09:26→17:07)
[2017-01-15] MEDS: POLYETHYLENE GLYCOL 3350 17 GM PKT PO SCH (09:26)
--- NOTE | 2017-01-15 10:49 | SOAPPROG ---
SOAP Progress Note Assessment/Plan: Assessment: POD # 5 s/p left transmetarsal amputation for osteomylitis Severe PVD Dementia Multiple co-morbidities (appreciate hospitalists) In terms of the wound, we will continue the wound vac and broad spectrum antibiotics, awaiting final pathology for margins to determine length of antibiotics as well as if other surgery needs to be done. If other surgery, will heal AKA but will need to review if BKA may be an option Path to be finalized tomorrow S: Feeling well, Seems confused and other times appropriate O: Wound measures 4.5x8x1.5cm. Healthy granulation tissue laterally/ pale tissue medially. No bone palpable Deep tissue injury medial, lateral malleolus and heel. Plan: 01/15/17 10:40 01/15/17 11:04 Objective: Vital Signs Temp Pulse Resp BP Pulse Ox 36.3 C 67 18 126/62 H 92 01/15/17 07:53 01/15/17 07:53 01/15/17 07:53 01/15/17 07:53 01/15/17 07:53 Microbiology 01/10/17 12:51 Mycobacterial Smear (SANCHEZ) - Final Foot - Bone 01/10/17 12:51 Gram Stain - Final Foot - Bone Laboratory Results 01/15/17 04:30 01/15/17 04:30 01/14/17 01/15/17 01/16/17 05:59 05:59 05:59 Intake Total 300 850 Output Total 100 Balance 200 850 PT 28.2 SEC (12.0-15.0) H 01/15/17 04:30 INR 2.61 (0.83-1.16) H 01/15/17 04:30 ICD10 Worksheet Patient Problems: Problems Problem Status Onset Chronic wound of extremity Acute
--- NOTE | 2017-01-15 14:52 | PCMIDPN ---
Assessment/Plan: # polymicrobial osteomyelitis - POD # 5 s/p left transmetarsal amputation ; exam by surgery shows wound measures 4.5x8x1.5cm. Healthy granulation tissue laterally/ pale tissue medially. No bone palpable # Renal insufficiency CrCl somewhere b/t 45 and 60 # Severe PVD # Dementia Rec 1) awaiting path, if neg margins may be able to dc antibiotics soon 2) PsA on culture warrants higher dosing Zosyn , increase 4.5 gm IV q6h medications zosyn 3.375gm IV q6h #2 Subjective: c/o of L foot pain Objective: Vital Signs Temp Pulse Resp BP Pulse Ox 36.3 C 67 18 126/62 H 92 01/15/17 07:53 01/15/17 07:53 01/15/17 07:53 01/15/17 07:53 01/15/17 07:53 Microbiology 01/10/17 12:51 Gram Stain - Final Foot - Bone 01/10/17 12:51 Mycobacterial Smear (SANCHEZ) - Final Foot - Bone Laboratory Results 01/15/17 04:30 01/15/17 04:30 01/14/17 01/15/17 01/16/17 05:59 05:59 05:59 Intake Total 300 850 Output Total 100 Balance 200 850 Gen pale elderly male, answers simple questions o/p dry CV: RRR + SM Chest clear B Abd: soft NT L foot wound vac in place; no clear cellulitis ICD10 Worksheet Patient Problems: Problems Problem Status Onset Chronic wound of extremity Acute
[2017-01-15] MEDS ORDERED: WARFARIN SODIUM 2 MG TAB PO ONE (16:00)
[2017-01-15] MEDS: PIPERACILLIN/TAZO 4.5 GM/DEX 100 ML IV SCH ×2 (17:07→23:10)
[2017-01-15] MEDS: DONEPEZIL HCL 5 MG TAB PO SCH (19:55)
[2017-01-15] MEDS: HYDROCODONE/APAP 5/325 TAB PO PRN (23:10)
[2017-01-16 04:52] LABS: HEMOGLOBIN 8.4 g/dL (13.7-17.5)
[2017-01-16 05:02] LABS: INR 2.65 (0.83-1.16); PROTIME(PATIENT) 28.6 SEC (12.0-15.0)
[2017-01-16] MEDS: PIPERACILLIN/TAZO 4.5 GM/DEX 100 ML IV SCH ×3 (05:37→17:38)
[2017-01-16] MEDS: oxyCODONE IR 5 MG TAB PO PRN ×2 (06:37→12:54)
[2017-01-16] MEDS: INSULIN LISPRO 100 UNIT/ML SC SCH ×3 (09:14→17:37)
[2017-01-16] MEDS: POLYETHYLENE GLYCOL 3350 17 GM PKT PO SCH (09:15)
[2017-01-16] MEDS: HYDROCODONE/APAP 5/325 TAB PO PRN ×3 (09:19→21:47)
[2017-01-16] MEDS: FERROUS SULFATE 325 MG TAB PO SCH (09:20)
[2017-01-16] MEDS: glipiZIDE 5 MG TAB PO SCH (09:20)
[2017-01-16] MEDS: ATORVASTATIN CALCIUM 40 MG TAB PO SCH (09:20)
--- NOTE | 2017-01-16 09:43 | SOAPPROG ---
SOAP Progress Note Assessment/Plan: Assessment: POD #6 s/p left transmetarsal amputation for osteomyelitis Severe PVD Dementia Multiple co-morbidities (appreciate hospitalists) Wound vac change tomorrow IV antibiotics per ID Final bone margin negative Will discuss with ID to determine length of antibiotic therapy May be able to DC with close f/u in our office S: Feeling well, pain controlled O: Laying in bed, comfortable, daughter at bedside No increased WOB No peripheral edema R BKA Wound vac intact - dusky tissue medial forefoot Deep tissue injury medial, lateral malleolus and heel - allevyns in place Objective: Vital Signs Temp Pulse Resp BP Pulse Ox 36.8 C 71 16 161/82 H 99 01/16/17 07:55 01/16/17 07:55 01/16/17 07:55 01/16/17 07:55 01/16/17 07:55 Microbiology 01/10/17 12:51 Gram Stain - Final Foot - Bone 01/10/17 12:51 Mycobacterial Smear (SANCHEZ) - Final Foot - Bone Laboratory Results 01/16/17 04:24 01/15/17 04:30 01/15/17 01/16/17 01/17/17 05:59 05:59 05:59 Intake Total 850 300 Output Total 351 Balance 850 -51 PT 28.6 SEC (12.0-15.0) H 01/16/17 04:24 INR 2.65 (0.83-1.16) H 01/16/17 04:24 ICD10 Worksheet Patient Problems: Problems Problem Status Onset Chronic wound of extremity Acute - ICD10 Problem Qualifiers (1) Chronic wound of extremity
[2017-01-16 14:58] LABS: ANION GAP 10 mEq/L (8-16); CALCIUM 8.8 mg/dL (8.5-10.4); CARBON DIOXIDE 23 mEq/l (22-31); CHLORIDE 105 mEq/L (97-110); CREATININE 1.3 mg/dL (0.7-1.3); GLOMERULAR FILTRATION RATE 53; GLUCOSE 97 mg/dL (70-100); SODIUM 138 mEq/L (134-144)
--- NOTE | 2017-01-16 15:07 | HOSPPROG ---
Hospitalist Progress Note Assessment/Plan: Patient is a 81-year-old male who has a history of peripheral vascular disease. He had a lower extremity amputation due to a chronic lower leg extremity wound. Reviewed his care with Dr Shea. *polymicrobial osteomyelitis now with pseudomonas, proteus, strept POD #6 / transmetatarsal amputation for osteo Zosyn *Severe PVD hx of bka to right leg now with amputation to left foot area *Chronic wound to left lower leg *Acute encephalopathy due to recent surgery alert and oriented during my evaluation has underlying dementia *afib/chronic rate controlled pharmacy managing Coumadin INR is 2.65 *Hyponatremia resolved *Hypotension resolved * DM2 glipizide *anemia h/h 8.4/ due to acute illness *Plan : continued IV abx Subjective: Braden says his pain is well managed overall. Objective: Vital Signs Temp Pulse Resp BP Pulse Ox 36.6 C 59 L 16 146/69 H 99 01/16/17 12:15 01/16/17 12:15 01/16/17 12:15 01/16/17 12:15 01/16/17 12:15 Microbiology 01/10/17 12:51 Gram Stain - Final Foot - Bone 01/10/17 12:51 Mycobacterial Smear (SANCHEZ) - Final Foot - Bone Laboratory Results 01/16/17 04:24 01/16/17 12:45 01/15/17 01/16/17 01/17/17 05:59 05:59 05:59 Intake Total 850 300 Output Total 351 Balance 850 -51 PT 28.6 SEC (12.0-15.0) H 01/16/17 04:24 INR 2.65 (0.83-1.16) H 01/16/17 04:24 - Physical Exam Constitutional: not in pain, chronically ill appearing Eyes: PERRL Ears, Nose, Mouth, Throat: hearing normal Cardiovascular: irregularly irregular Respiratory: no respiratory distress Gastrointestinal: normoactive bowel sounds Skin: other (wound vac/ left foot) Musculoskeletal: generalized weakness Neurologic: other (alert and oriented) Psychiatric: interacting appropriately, not anxious ICD10 Worksheet Patient Problems: Problems Problem Status Onset Chronic wound of extremity Acute
--- NOTE | 2017-01-16 15:08 | PCMIDPN ---
Assessment/Plan: Assessment: polymicrobial left foot osteomyelitis. Status post transmetatarsal resection. Bone path back with negative margins. Will treat for 7 days with current antibiotic and discontinue. Patient is tolerating Zosyn well. Plan: 1. Continue Zosyn 1 more day. 2. follow clinical course. 01/16/17 19:40 Subjective: Patient resting in his hospital bed. No new complaints. Objective: Zosyn # 7 post -op Vital Signs Temp Pulse Resp BP Pulse Ox 36.6 C 59 L 16 146/69 H 99 01/16/17 12:15 01/16/17 12:15 01/16/17 12:15 01/16/17 12:15 01/16/17 12:15 Microbiology 01/10/17 12:51 Gram Stain - Final Foot - Bone 01/10/17 12:51 Mycobacterial Smear (SANCHEZ) - Final Foot - Bone Laboratory Results 01/16/17 04:24 01/16/17 12:45 01/15/17 01/16/17 01/17/17 05:59 05:59 05:59 Intake Total 850 300 Output Total 351 Balance 850 -51 - Physical Exam General Appearance: WD/WN, alert, no apparent distress, non-toxic Respiratory: lungs clear, normal breath sounds, No respiratory distress Cardiac/Chest: regular rate, rhythm, No tachycardia Skin: normal color, warm/dry, No rash ICD10 Worksheet Patient Problems: Problems Problem Status Onset Chronic wound of extremity Acute
[2017-01-16] MEDS ORDERED: WARFARIN SODIUM 2 MG TAB PO ONE (16:00)
[2017-01-16] MEDS: DONEPEZIL HCL 5 MG TAB PO SCH (21:48)
[2017-01-17] MEDS: PIPERACILLIN/TAZO 4.5 GM/DEX 100 ML IV SCH ×2 (00:21→05:30)
[2017-01-17] MEDS: oxyCODONE IR 5 MG TAB PO PRN ×3 (03:05→16:21)
[2017-01-17 04:44] LABS: INR 3.32 (0.83-1.16); PROTIME(PATIENT) 34.2 SEC (12.0-15.0)
[2017-01-17] MEDS: HYDROCODONE/APAP 5/325 TAB PO PRN ×2 (06:16→12:18)
[2017-01-17] MEDS: glipiZIDE 5 MG TAB PO SCH (09:56)
[2017-01-17] MEDS: ATORVASTATIN CALCIUM 40 MG TAB PO SCH (09:56)
[2017-01-17] MEDS: FERROUS SULFATE 325 MG TAB PO SCH (09:56)
[2017-01-17] MEDS: INSULIN LISPRO 100 UNIT/ML SC SCH ×2 (09:59→11:50)
[2017-01-17] MEDS: POLYETHYLENE GLYCOL 3350 17 GM PKT PO SCH (10:00)
--- NOTE | 2017-01-17 12:06 | HOSPPROG ---
Hospitalist Progress Note Assessment/Plan: Patient is a 81-year-old male who has a history of peripheral vascular disease. He had a lower extremity amputation due to a chronic lower leg extremity wound. *polymicrobial osteomyelitis now with pseudomonas, proteus, strept POD #7 / transmetatarsal amputation for osteo/negative margins Zosyn (today will be last dose per ID) *Severe PVD hx of bka to right leg now with amputation to left foot area *Chronic wound to left lower leg *Acute encephalopathy due to recent surgery alert and oriented during my evaluation has underlying dementia *afib/chronic rate controlled pharmacy managing Coumadin INR is 3.32care *Hyponatremia resolved *Hypotension resolved * DM2 glipizide *anemia h/h 8.4/28 due to acute illness *Plan :care per surgical team/ he got OOB with PT and did quite well/ he will need rehab and wound care per surgery Subjective: Braden said his pain is well managed overall. Objective: Vital Signs Temp Pulse Resp BP Pulse Ox 36.8 C 65 16 153/94 H 90 L 01/17/17 07:43 01/17/17 07:43 01/17/17 07:43 01/17/17 07:43 01/17/17 07:43 Microbiology 01/10/17 12:51 Gram Stain - Final Foot - Bone Laboratory Results 01/16/17 04:24 01/16/17 12:45 01/16/17 01/17/17 01/18/17 05:59 05:59 05:59 Intake Total 300 1200 300 Output Total 351 Balance -51 1200 300 PT 34.2 SEC (12.0-15.0) H 01/17/17 04:07 INR 3.32 (0.83-1.16) H 01/17/17 04:07 - Physical Exam Constitutional: not in pain, chronically ill appearing Eyes: PERRL Ears, Nose, Mouth, Throat: hearing normal Cardiovascular: regular rate and rhythym Respiratory: no respiratory distress Gastrointestinal: normoactive bowel sounds Skin: other (left lower ext w wound vac, BKA to right leg) Musculoskeletal: generalized weakness Neurologic: AAOx3 Psychiatric: interacting appropriately, not anxious ICD10 Worksheet Patient Problems: Problems Problem Status Onset Chronic wound of extremity Acute
--- NOTE | 2017-01-17 14:52 | PDIAF ---
- Diagnosis Diagnosis: PVD, LLE chronic wound s/p TMA Code Status: Full Code - Medication Management Discharge Medications: Medications to Continue on Transfer Acetaminophen [Tylenol ES 500 mg (*)] 1,000 mg PO Q6 PRN 01/10/17 [Last Taken Unknown] Atorvastatin Calcium [Lipitor 40 mg (*)] 40 mg PO DAILY 01/10/17 [Last Taken 21:00] Calcium Carb, Citrate/Vit D3 [Calcium + D3 ER Tablet] 1 each PO DAILY 01/10/17 [ Last Taken 01/09/17 12:00] Carboxymethylcellulose Sodium [Lubricant Dry Eye Relief] 1 drop EACHEYE Q6HRS PRN 01/10/17 [Last Taken Unknown] Cholecalciferol Vit D3 [Vitamin D3 (*)] 50,000 unit PO Q30D 01/10/17 [Last Taken 12/26/16] Donepezil HCl [Aricept] 10 mg PO HS 01/10/17 [Last Taken 01/09/17 20:00] Ferrous Sulfate [Ferrous Sulf 325 MG (*)] 325 mg PO DAILY 01/10/17 [Last Taken 01/10/17 08:00] Furosemide [Lasix 40 MG (*)] 40 mg PO DAILY 01/10/17 [Last Taken 01/10/17 08:00] Lidocaine 2% Jelly [Lidocaine 2% Jelly (*)] 1 rajeev TP BID PRN 01/10/17 [Last Taken Unknown] Metoprolol Tartrate [Lopressor 25 mg (*)] 12.5 mg PO BID 01/10/17 [Last Taken Unknown] Morphine Sulfate [Ms Contin] 15 mg PO HS 01/10/17 [Last Taken 01/09/17 21:00] Multivitamins [Multivitamin (*)] 1 each PO DAILY 01/10/17 [Last Taken 01/10/17 08:00] Polyethylene Glycol 3350 [Miralax 17 gm (*)] 17 gm PO DAILY 01/10/17 [Last Taken 01/10/17 09:00] Potassium Cl [Klor-Con 20 meq (*)] 20 meq PO DAILY 01/10/17 [Last Taken 08:00] Warfarin Sodium [Coumadin 2.5MG (*)] 2.5 mg PO SUTUWEFRSA@1600 01/10/17 [Last Taken 01/04/17] Warfarin Sodium [Coumadin 5MG (*)] 5 mg PO SUTH@1500 01/10/17 [Last Taken ] glipiZIDE [Glipizide] 5 mg PO DAILY 01/10/17 [Last Taken 01/10/17 08:00] oxyCODONE IR [Oxycodone Ir (*)] 5 mg PO Q6H PRN 01/10/17 [Last Taken Unknown] Discharge Medications: Refer to the Discharge Home Medication list for PRN reason. - Orders Services needed: Home Care, Registered Nurse, Certified Right Of Way Man, Physical Therapy, Occupational Therapy Home Care Face to Face: I certify that this patient was under my care and that I had the required [id number] encounter meeting the encounter requirements on the discharge day. My findings support the fact that the patient is homebound as defined in CMS Chapter 7 Medicare Benefits Manual 30.1.1, The condition of the patient is such that there exists a normal inability to leave home and consequently, leaving home would require a considerable and taxing effort. Diet Recommendation: no restrictions on diet Diet Texture: Regular Texture Diet - Labs/Radiology CBC Date: 01/22/17 - Follow Up Care Current Providers and Referrals: CHRISTAL GORE [Other] Stefanie Vuong MD [Medical Doctor] -
[2017-01-17 16:44] VITALS: BP 140/87; PULSE 75; RESP 18; TEMP 97.4; O2SAT 92
--- NOTE | 2017-01-17 16:59 | SOAPPROG ---
SOAP Progress Note Assessment/Plan: Assessment: POD #7 s/p left transmetarsal amputation for osteomyelitis Severe PVD Dementia Multiple co-morbidities (appreciate hospitalists) Wound vac changed - tissue improved IV antibiotics dc today per ID Final bone margin negative Dispo: d/c today to SNF ([facility]). Change vac MWF. F/u 1 week in our office S: Feeling well, pain controlled O: Laying in bed, comfortable No increased WOB No peripheral edema R BKA Wound vac changed- some granulation in base, less dusky Deep tissue injury medial, lateral malleolus and heel - allevyns in place 01/17/17 16:55 Objective: Vital Signs Temp Pulse Resp BP Pulse Ox 36.3 C 75 18 140/87 H 92 01/17/17 16:00 01/17/17 16:00 01/17/17 16:00 01/17/17 16:00 01/17/17 16:00 Microbiology 01/10/17 12:51 Gram Stain - Final Foot - Bone Anaerobic Culture - Final Proteus Mirabilis Pseudomonas Aeruginosa Streptococcus Pyogenes Grp A Laboratory Results 01/16/17 04:24 01/16/17 12:45 01/16/17 01/17/17 01/18/17 05:59 05:59 05:59 Intake Total 300 1200 300 Output Total 351 Balance -51 1200 300 PT 34.2 SEC (12.0-15.0) H 01/17/17 04:07 INR 3.32 (0.83-1.16) H 01/17/17 04:07 ICD10 Worksheet Patient Problems: Problems Problem Status Onset Chronic wound of extremity Acute - ICD10 Problem Qualifiers (1) Chronic wound of extremity
--- NOTE | 2017-01-17 17:13 | WOCRNPDOC ---
WOCRN Advanced Assessment Note - Skin Integrity Problem, Advanced Assess Left Heel Pressure Injury Dressing Type: Open to Air Exudate Amount: None Exudate Characteristic(s): None Integumentary Issue Intervention: Dressing Applied (Allevyn Heel dressing) Zoe Wound Tissue: Blanching, Erythema, Intact Wound Bed Color: Purple Site Measurement - Head-to-Toe Length X Width X Depth (cm): [id number] Pressure Injury Stage: Deep Tissue Injury (DTI) Pressure Injury Present on Admit: Yes Skin Integrity Problem Comment: Non-blanching area of red/purple ecchymosis on L heel, consistent in appearance w/ deep tissue injury. Protective heel dressing placed over site. Left Lateral Foot Pressure Injury Dressing Type: Allevyn Life Dressing Description: Saturated Exudate Amount: Moderate Exudate Color: Reddish/Yellow Exudate Characteristic(s): Serosanguinous Integumentary Issue Intervention: Dressing Changed Zoe Wound Tissue: Erythema, Macerated, Raw, Swollen Zoe Wound Swelling: Mild Wound Bed Color: [place], Purple, Red Wound Bed Constitution: Smooth Tissue Site Odor: Slight Site Measurement - Head-to-Toe Length X Width X Depth (cm): [id number] area of red/purple ecchymosis along L lateral foot. [id number] area of partial- thickness tissue loss superior to ecchymosis. Pressure Injury Stage: Stage 2, Deep Tissue Injury (DTI) Pressure Injury Present on Admit: Yes Skin Integrity Problem Comment: There is ecchymotic tissue along the lateral edge of patient's L foot, indicative of deep tissue injury. In addition, there is an adjacent area just superior to this DTI w/ partial-thickness tissue loss. Uncertain if the eitology of the latter in pressure-related, though its appearance is consistent w/ stage II injury. Margins are macerated and existing dressing was saturated. Site cleansed, and new dressing applied.
== END 2017-01-17 18:12 | DRG 616 ==
LOC: F3N 10:05 → F2N 15:02 → F3N 01-11 15:35 → F1N 01-15 18:29
PROVIDERS: ADMIT Surgery; ATTEND Surgery
PROC: 0Y6N0Z0 Detachment at Left Foot, Complete, Open Approach (ICD-10-PCS; principal; 2017-01-10 11:45)
DX: E11.621 Type 2 diabetes mellitus with foot ulcer (principal); L97.529 Non-pressure chronic ulcer of other part of left foot with unspecified severity; E11.51 Type 2 diabetes mellitus with diabetic peripheral angiopathy without gangrene; I73.9 Peripheral vascular disease, unspecified; E11.69 Type 2 diabetes mellitus with other specified complication; M86.172 Other acute osteomyelitis, left ankle and foot; G93.40 Encephalopathy, unspecified; E87.1 Hypo-osmolality and hyponatremia; I95.9 Hypotension, unspecified; M87.9 Osteonecrosis, unspecified; B96.5 Pseudomonas (aeruginosa) (mallei) (pseudomallei) as the cause of diseases classified elsewhere; B96.4 Proteus (mirabilis) (morganii) as the cause of diseases classified elsewhere; B95.5 Unspecified streptococcus as the cause of diseases classified elsewhere; G31.84 Mild cognitive impairment of uncertain or unknown etiology; I50.9 Heart failure, unspecified; E11.22 Type 2 diabetes mellitus with diabetic chronic kidney disease; N18.9 Chronic kidney disease, unspecified; I48.2 Chronic atrial fibrillation; Z89.511 Acquired absence of right leg below knee; Z87.891 Personal history of nicotine dependence; Z79.01 Long term (current) use of anticoagulants; Z99.3 Dependence on wheelchair; R41.3 Other amnesia
CPT/HCPCS: 82947-QW; 97110-GP; 97162-GP; 97166-GO; 97530-GO; 97530-GP; 97535-GO; G8978-GP-CL; G8979-GP-CJ; G8987-GO-CL; G8988-GO-CJ; J0690; J1170; J1200; J1335; J2543; J2704; J3010

== ENCOUNTER → 2017-02-06 | Outpatient (CLI) | payer OTHER ==
[~2017-02-06] MED LIST: IOPAMIDOL (ISOVUE 370) 100 ML BTL IV ONE
== END ==
LOC: FIMAGING 15:26
PROVIDERS: ATTEND Surgery
CPT/HCPCS: 75635; Q9967

== ENCOUNTER 2017-02-14 09:14 | Inpatient (IN) | payer OTHER ==
--- NOTE | 2017-02-12 09:10 | GHP ---
[f rep st] PREOP HISTORY AND PHYSICAL DATE OF ADMISSION: 02/14/2017 DATE OF SURGERY: 02/14/2017. PREOPERATIVE DIAGNOSIS: Nonhealing left lower extremity wound, severe peripheral vascular disease. HISTORY OF PRESENT ILLNESS: The patient is an 81-year-old man who underwent left transmetatarsal am putation with wound VAC placement for severe peripheral vascular disease and chronic wound with oste omyelitis. He recently moved from [place] where he had a full workup for peripheral vascular disea se and was determined to have no possibility for revascularization. He underwent transmetatarsal am putation on 01/10/2017; however, since that time, the wound has not shown significant improvement, a nd his family has elected to proceed with a more proximal amputation. He had a CT angiogram on 01/12 to evaluate his vascular status, which unfortunately showed severe peripheral vascular diseas e with occlusive disease from the femoral artery and popliteal artery bilaterally. Given this infor mation, he may not heal a [id number]-[id number] amputation, and it has been decided to proceed with above-t he-knee amputation of the left lower extremity. PAST MEDICAL HISTORY: Memory loss, CHF, aortic stenosis, type 2 diabetes, chronic kidney disease, a trial fibrillation, on chronic anticoagulation, BPH, hypertension, GERD, peripheral vascular disease . PAST SURGICAL HISTORY: Right traumatic BKA, laminectomy, left TMA. ALLERGIES: Codeine. FAMILY HISTORY: Noncontributory to wound. SOCIAL HISTORY: He is a former smoker. No alcohol or recreational drug use. He is currently resid ing at [facility] in [place]. His daughter is very involved in his care. He recently moved from [facility] to be close to family. REVIEW OF SYSTEMS: The patient has memory loss and is unable to give an accurate review of systems. PHYSICAL EXAM: GENERAL: Well-developed, well-nourished, elderly man, in no acute distress, accompa nied by daughter, wheelchair bound. HEENT: Normocephalic, atraumatic. No hearing deficits. Pupil s equal and round. No scleral icterus. Mucous membranes moist. NECK: Trachea midline. RESPIRATOR Y: Clear to auscultation bilaterally. No increased work of breathing. CARDIOVASCULAR: 2+ peripher al edema, left lower extremity. Unable to palpate PT, DP pulses. SKIN: There is a wound VAC intac t in the left lower extremity, status post TMA. There is an unstageable pressure ulcer of the left m edial malleolus, as well as the lateral foot and heel. PSYCH: Very pleasant. Mood and affect norm al. NEUROLOGIC: Significant memory loss. MUSCULOSKELETAL: Wheelchair bound, right BKA, left TMA. IMPRESSION AND PLAN: The patient is an 81-year-old man with nonhealing left lower extremity wound, status post transmetatarsal amputation, with severe peripheral vascular disease. Unfortunately, he has no revascularization options. Will proceed with mbztn-[id number]-voom amputation. We discussed risks of surgery, including, but not limited to, heart attack, stroke, blood clots or . We discussed risk of infection, bleeding, delayed wound healing, or need for additional procedures. His angélica r understands the risks, and they would both like to proceed with the procedure. This will be an in patient procedure due to his comorbidities. He will be off anticoagulation for 4 days prior to the procedure. The patient was additionally seen by Dr. Stefanie Vuong, who agrees with the above impressi on and plan. /[id number]/MODL
--- NOTE | 2017-02-13 19:12 | PDANEPAE ---
ANE History of Present Illness 81 year old male w/ PMHx of atherosclerosis (CAD, severe PAD/PVD), A. Fib ( chart indicates patient is anti-coagulated, but no anti-coagulants listed in home medications) documented moderate Aortic stenosis, CHF, CKD, NIDDM, HTN, GERD and dementia presents for left BKA vs. AKA. ANE Past Medical History - Cardiovascular History Hx Hypertension: Yes Hx Arrhythmias: Yes Hx Coronary Artery / Peripheral Vascular Disease: Yes Hx CHF / Valvular Disease: Yes Cardiovascular History Comment: AORTIC STENOSIS. ATRIAL FIB - CHRONIC ANTICOAG - Pulmonary History Hx COPD: No Hx Asthma/Reactive Airway Disease: No Hx Recent Upper Respiratory Infection: No Hx Oxygen in Use at Home: No Hx Sleep Apnea: No Sleep Apnea Screening Result - Last Documented: Positive - Neurologic History Hx Cerebrovascular Accident: No Hx Seizures: No Hx Dementia: Yes - Endocrine History Hx Diabetes: Yes Endocrine History Comment: DM II - Renal History Hx Renal Disorders: Yes Renal History Comment: CHRONIC KIDNEY DISEASE. BPH - Liver History Hx Hepatic Disorders: No - Cancer History Hx Cancer: No - Congenital Disorder History Hx Congenital Disorders: No - GI History Hx Gastrointestinal Disorders: Yes Gastrointestinal History Comment: GERD - Chronic Pain History Chronic Pain: No - Surgical History Prior Surgeries: R TRAUMATIC BKA. LAMINECTOMY. L TMA ANE Review of Systems - Exercise capacity METS (RN): 1 METS ANE Patient History - Allergies Allergies/Adverse Reactions: codeine Allergy (Verified 01/09/17 17:31) - Home Medications Home Medications: Acetaminophen [Tylenol ES 500 mg (*)] 1,000 mg PO Q6 PRN 01/10/17 [Last Taken Unknown] Atorvastatin Calcium [Lipitor 40 mg (*)] 40 mg PO HS 01/10/17 [Last Taken 21:00] Calcium Carb, Citrate/Vit D3 [Calcium + D3 ER Tablet] 1 each PO DAILY 01/10/17 [ Last Taken 01/09/17 12:00] Carboxymethylcellulose Sodium [Lubricant Dry Eye Relief] 1 drop EACHEYE Q6HRS PRN 01/10/17 [Last Taken Unknown] Donepezil HCl [Aricept] 10 mg PO HS 01/10/17 [Last Taken 01/09/17 20:00] Ferrous Sulfate [Ferrous Sulf 325 MG (*)] 325 mg PO DAILY 01/10/17 [Last Taken 01/10/17 08:00] Lidocaine 2% Jelly [Lidocaine 2% Jelly (*)] 1 rajeev TP BID PRN 01/10/17 [Last Taken Unknown] Metoprolol Tartrate [Lopressor 25 mg (*)] 12.5 mg PO BID 01/10/17 [Last Taken Unknown] Morphine Sulfate [Ms Contin] 15 mg PO HS 01/10/17 [Last Taken 01/09/17 21:00] Multivitamins [Multivitamin (*)] 1 each PO DAILY 01/10/17 [Last Taken 01/10/17 08:00] Polyethylene Glycol 3350 [Miralax 17 gm (*)] 17 gm PO DAILY 01/10/17 [Last Taken 01/10/17 09:00] glipiZIDE [Glipizide] 5 mg PO DAILY 01/10/17 [Last Taken 01/10/17 08:00] Diclofenac Sodium 1% [Voltaren Gel (*)] 2 rajeev TP QID PRN 02/12/17 [Last Taken Unknown] Ergocalciferol [Vitamin D2 (*)] 50,000 unit PO Q30D 02/12/17 [Last Taken Unknown ] Gabapentin [Neurontin 300 MG (*)] 600 mg PO HS 02/12/17 [Last Taken Unknown] Herbals/Supplements -Info Only 1 ea PO DAILY 02/12/17 [Last Taken Unknown] Sennosides/Docusate Sodium [Senna-S Tablet] 1 each PO BID PRN 02/12/17 [Last Taken Unknown] oxyCODONE IR [Oxycodone Ir (*)] 5 - 10 mg PO Q4HRS PRN 02/12/17 [Last Taken Unknown] - Smoking Hx Smoking Status: Former smoker ANE Labs/Vital Signs - Vital Signs Height: 185.42 cm Weight: 93.44 kg ANE Physical Exam - Airway Mallampati Score: Class 2 Mouth exam: dentures - Pulmonary Pulmonary: no respiratory distress - Cardiovascular Cardiovascular: regular rate and rhythym - ASA Status ASA Status: III ANE Anesthesia Plan Regional Anesthesia: single shot NB (Patient and daughter (Yelena) consented for post-op peripheral nerve block if necessary.)
[2017-02-14] MEDS ORDERED: ceFAZolin 2 GM/DEXTROSE 100 ML IV ONE (10:09)
[2017-02-14] MEDS ORDERED: LIDOCAINE 1% 2 ML INJ ID PRN (10:24)
[2017-02-14] MEDS ORDERED: LR 1,000 ML IV ONE (10:24)
[2017-02-14] MEDS ORDERED: PROPOFOL 200 MG/20 ML VIAL ONE (11:04)
[2017-02-14] MEDS ORDERED: fentaNYL 100 MCG/2 ML INJ ONE ×2 (11:04→12:55)
[2017-02-14 11:07] LABS: INR 1.43 (0.83-1.16); PROTIME(PATIENT) 17.4 SEC (12.0-15.0)
[2017-02-14] MEDS ORDERED: ROCURONIUM 100 MG/10 ML VIAL ONE (11:08)
[2017-02-14] MEDS ORDERED: LIDOCAINE 2% 100 MG/5 ML SYR ONE (11:08)
[2017-02-14] MEDS ORDERED: PHENYLEPHRINE HCL 100 MCG/ML SYR ONE (11:37)
[2017-02-14] MEDS ORDERED: KETAMINE 100 MG/10 ML SYR ONE (11:42)
[2017-02-14] MEDS: BUPIVACAINE 0.5% 30 ML SDV ONE ×2 (12:00→12:55)
[2017-02-14] MEDS ORDERED: fentaNYL 100 MCG/2 ML INJ IVP PRN (12:18)
[2017-02-14] MEDS ORDERED: LR 500 ML IV PRN (12:18)
[2017-02-14] MEDS ORDERED: NALOXONE HCL 0.4 MG/ML INJ IVP PRN (12:18)
[2017-02-14] MEDS ORDERED: HYDROmorphONE/DILAUDID 1 MG/ML SYR IVP PRN (12:18)
[2017-02-14] MEDS ORDERED: SUGAMMADEX SODIUM 200 MG/2 ML VIAL IVP ONE (12:34)
[2017-02-14] MEDS ORDERED: ONDANSETRON 4 MG/2 ML VIAL ONE (12:34)
--- NOTE | 2017-02-14 12:55 | POSTOPPROG ---
Post Op Note Date of Operation: 02/14/17 Surgeon: Stefanie Vuong Strategic Planning Analyst: [email or web address] Anesthesiologist: henok Anesthesia: GET(General Endotracheal) Pre-op Diagnosis: chronic non healing wound, severe PVD Post-op Diagnosis: same Indication: 81yo M with nonhealing TMA, no revascularization options Procedure: L AKA Findings: none unusual Inf/Abcess present in the surg proc area at time of surgery?: Yes Depth: Deep Incisional (Fascial) EBL: 50-100 Drains: Wound Vac
[2017-02-14] MEDS ORDERED: diphenhydrAMINE 25 MG CAP PO PRN (12:58)
[2017-02-14] MEDS ORDERED: DICLOFENAC SODIUM 1% 100 GM GEL TP PRN (13:00)
[2017-02-14] MEDS ORDERED: CARBOXYMETHYLCELLULOSE SODIUM EACHEYE PRN (13:00)
[2017-02-14] MEDS ORDERED: SENNOSIDES/DOCUSATE SODIUM TAB PO PRN (13:00)
[2017-02-14] MEDS ORDERED: D50W 25 GM/50 ML SYR IVP PRN (13:01)
[2017-02-14] MEDS ORDERED: DEXMEDETOMIDINE HCL 400 MCG in NS 100 ML IV SCH (13:30)
[2017-02-14] MEDS ORDERED: LIDOCAINE 2% JELLY 5 ML TUBE TP PRN (14:18)
[2017-02-14] MEDS ORDERED: BISACODYL 10 MG SUPP PR PRN (14:19)
[2017-02-14] MEDS ORDERED: LACTULOSE 20 GM/30 ML UDCUP PO PRN (14:19)
[2017-02-14] MEDS ORDERED: TEARS/DEXTRAN 70/HYPROMELLOSE 15 ML OPHT.BTL EACHEYE PRN (14:22)
[2017-02-14] MEDS: oxyCODONE IR 5 MG TAB PO PRN ×2 (14:45→19:53)
--- NOTE | 2017-02-14 14:53 | PDGENHP ---
History and Physical - Chief Complaint Acute leg pain - History of Present Illness primary service: Dr. Vuong, general surgery Reason for consultation: Medical comanagement HPI: 81-year-old male presents for scheduled above the knee amputation left side. Postoperatively, he is expressing that he has left extremity pain, located in the left stump, characterized as a sharp pain, associated with some confusion postoperatively. He reports that he is not normally confused. He reports that he does not take sustained release morphine at night. He reports that he does take oxycodone at home as needed. The pain is usually somewhat alleviated by oxycodone. History Information - Allergies/Home Medication List Allergies/Adverse Reactions: codeine Allergy (Verified 01/09/17 17:31) Home Medications: Acetaminophen [Tylenol ES 500 mg (*)] 1,000 mg PO Q6 PRN 01/10/17 [Last Taken Unknown] Atorvastatin Calcium [Lipitor 40 mg (*)] 40 mg PO HS 01/10/17 [Last Taken 21:00] Calcium Carb, Citrate/Vit D3 [Calcium + D3 ER Tablet] 1 each PO DAILY 01/10/17 [ Last Taken 02/12/17] Carboxymethylcellulose Sodium [Lubricant Dry Eye Relief] 1 drop EACHEYE Q6HRS PRN 01/10/17 [Last Taken Unknown] Donepezil HCl [Aricept] 10 mg PO HS 01/10/17 [Last Taken 01/09/17 20:00] Ferrous Sulfate [Ferrous Sulf 325 MG (*)] 325 mg PO DAILY 01/10/17 [Last Taken 01/10/17 08:00] Lidocaine 2% Jelly [Lidocaine 2% Jelly (*)] 1 rajeev TP BID PRN 01/10/17 [Last Taken Unknown] Metoprolol Tartrate [Lopressor 25 mg (*)] 12.5 mg PO BID 01/10/17 [Last Taken ] Morphine Sulfate [Ms Contin] 15 mg PO HS 01/10/17 [Last Taken 01/09/17 21:00] Multivitamins [Multivitamin (*)] 1 each PO DAILY 01/10/17 [Last Taken 02/12/17] Polyethylene Glycol 3350 [Miralax 17 gm (*)] 17 gm PO DAILY 01/10/17 [Last Taken 01/10/17 09:00] glipiZIDE [Glipizide] 5 mg PO DAILY 01/10/17 [Last Taken 02/14/17] Diclofenac Sodium 1% [Voltaren Gel (*)] 2 rajeev TP QID PRN 02/12/17 [Last Taken Unknown] Ergocalciferol [Vitamin D2 (*)] 50,000 unit PO Q30D 02/12/17 [Last Taken ] Gabapentin [Neurontin 300 MG (*)] 600 mg PO HS 02/12/17 [Last Taken Unknown] Herbals/Supplements -Info Only 1 ea PO DAILY 02/12/17 [Last Taken Unknown] Sennosides/Docusate Sodium [Senna-S Tablet] 1 each PO BID PRN 02/12/17 [Last Taken Unknown] oxyCODONE IR [Oxycodone Ir (*)] 5 - 10 mg PO Q4HRS PRN 02/12/17 [Last Taken Unknown] Warfarin Sodium [Coumadin 2.5MG (*)] 2.5 mg PO MOTUWEFRSA@16 02/14/17 [Last Taken Unknown] Warfarin Sodium [Coumadin 2.5MG (*)] 2.5 mg PO SUTH@16 02/14/17 [Last Taken Unknown] I have personally reviewed and updated: family history, medical history, social history, surgical history - Past Medical History atrial fibrillation ( permanent), CHF ( unclear ejection fraction), diabetes type 2, hypertension, peripheral artery disease ( With occlusion beyond the femoral and popliteal arteries) Additional medical history: aortic stenosis. Cognitive impairment. Osteomyelitis, polymicrobial. Chronic kidney disease stage 3 with baseline creatinine 1.3-1.5. Anemia of chronic kidney disease with baseline hemoglobin around 8.4. Nonhealing wounds - Surgical History Additional surgical history: left lower extremity above the knee amputation 02/14. Right lower extremity [id number] amputation. Transmetatarsal amputation left lower extremity 01/10/2017 - Family History Additional family history: family history of diabetes, no recent sick family contacts - Social History Smoking Status: Former smoker Alcohol Use: None Drug Use: None Additional social history: residing at [facility], originally from [place], recently relocated the [place] Review of Systems ROS: 10pt was reviewed & negative except for what was stated in HPI & below Constitutional: Reports: other ( pain left lower extremity) Neurological: Reports: other ( confusion) Physical Exam Temp Pulse Resp BP Pulse Ox 36.5 C 57 L 14 129/60 H 100 02/14/17 14:31 02/14/17 14:31 02/14/17 14:31 02/14/17 14:31 02/14/17 14:31 O2 (L/minute) 3 Constitutional: no apparent distress, chronically ill appearing, uncomfortable Eyes: anicteric sclera, EOMI, other ( somewhat constricted pupils) Ears, Nose, Mouth, Throat: moist mucous membranes, hearing normal, ears appear normal, no oral mucosal ulcers Cardiovascular: no murmur, rub, or gallop, irregularly irregular, No tachycardia Respiratory: no respiratory distress, no rales or rhonchi, clear to auscultation Gastrointestinal: normoactive bowel sounds, soft, non-tender abdomen, no palpable masses Skin: other ( clean margins at the left lower extremity surgical site without any surrounding erythema, no ecchymosis, mild tenderness) Musculoskeletal: other ( wound VAC in place on left lower extremity above the knee amputation, right lower extremity stump below the knee) Neurologic: sensation intact bilaterally ( lower extremity), CN II-XII Intact ( with the exception of mild left mouth droop, horizontal nystagmus), other ( alert awake oriented x2 to person and place, not to time), No weakness ( motor 5 /5 bilateral slag worker strength) Psychiatric: not anxious, thought process linear, flat affect, other ( concentration is 4/7), No agitated Lab Data & Imaging Review PT 17.4 SEC (12.0-15.0) H 02/14/17 10:45 INR 1.43 (0.83-1.16) H 02/14/17 10:45 POC Glucose 127 mg/dL (70-100) H 02/14/17 13:15 Patient ABO/Rh O POSITIVE 02/14/17 10:45 Antibody Screen NEGATIVE 02/14/17 10:45 Visualized and Interpreted imaging results: Yes Interpretation: telemetry demonstrating atrial fibrillation rhythm Assessment & Plan Assessment: 81-year-old male presenting for scheduled left [id number] amputation in the setting of polymicrobial osteomyelitis and nonhealing left lower extremity wound, peripheral arterial disease Plan: 1. Peripheral arterial disease. Acute on chronic, CT angiogram from 02/06/2017 demonstrating occlusion of the femoral and popliteal arteries, thus resulting in the decision to perform an above the knee amputation -recommend restarting peripheral arterial disease medications once bleeding risk has reduced, in particular anti-platelet medication, statin -get LDL to ascertain whether to continue statin at current dosage -postoperative management of left lower extremity AKA under the general surgery management with wound VAC in place 2. Chronic pain with continuous opiate dependency. Patient utilize oxycodone immediate release at home, he denies the use of morphine sulfate although it is on his medication reconciliation -would recommend utilizing oxycodone immediate release as needed, IV morphine for breakthrough pain, can consider sustained release medications after we have gauge effect -placed on bowel regimen -will be aware that his opiates will have reduced clearance in the setting of chronic kidney disease 3. Chronic kidney disease stage 3. baseline creatinine level is 1.3-1.5, track serum creatinine level during this hospitalization, get BMP in a.m. 4. Anemia of chronic kidney disease. Given risk of acute blood loss anemia, get serum hemoglobin level tomorrow a.m. or sooner if evidence of significant blood loss 5. suspected atelectasis. Patient with an SpO2 of 79% on room air following surgery, suspect atelectasis, give incentive spirometer 6. congestive heart failure. Chronic, unclear type, no evidence of acute exacerbation, continue to monitor I and O 7. Permanent atrial fibrillation. continue to monitor on telemetry for evidence of acute rapid ventricular response, continue on beta-eliud, continue on Coumadin this afternoon -monitor INR 8. chronic osteomyelitis. Reviewed outside records including Infectious Disease consultation by Dr. Gabino Shea from 01/16/2017, reports the patient received 7 days of Zosyn and that his previous TMA had negative margins, patient is being treated for Proteus, Pseudomonas, strep pyogenes 9. Hypertension. Chronic, monitor blood pressure and reinitiate home medications 10. Diabetes mellitus type 2. patient is on an oral sulfonylurea at baseline, continue comma with insulin sliding scale a.c. and HS to improve wound healing Hospital Medicine service will continue to consult in this patient's daily care. I have discussed patient's consultation with Cynthia Tee, hospitalist, she has signed out the patient for me for consultation.
[2017-02-14] MEDS ORDERED: WARFARIN SODIUM 2.5 MG TAB PO SCH (16:00)
[2017-02-14] MEDS: INSULIN LISPRO 100 UNIT/ML SC SCH ×2 (16:57→21:22)
--- NOTE | 2017-02-14 17:44 | GCON ---
[f rep st] CONSULTATION METAL CHECKER CONSULTATION The patient is examined postoperatively after receiving a left sbkwy-mpl-yhlu amputation. HISTORY OF PRESENT ILLNESS: The patient is a very pleasant 81-year-old white male with extensive [facility] medical history including atrial fib, peripheral vascular disease, non-insulin dependent diabetes , hypertension, aortic stenosis, chronic renal insufficiency. He is, again, examined postoperativel y after receiving a left knhaz-szo-dogd amputation. He states with the exception of some leg pain, he is doing quite well. He denies any shortness of breath, cough or production of sputum. There is no chest pain, pleuritic-type chest pain, or angina equivalent. No fever, no night sweats. Curren tly, he is resting comfortably. PAST MEDICAL HISTORY: Again, significant for congestive heart failure, atrial fibrillation, type 2 diabetes, hypertension, peripheral vascular disease, aortic stenosis, osteomyelitis, chronic renal i nsufficiency, PAST SURGICAL HISTORY: He has had a recent left lower extremity amputation. He has had a right bel ow-the-knee amputation. He has had a transmetatarsal amputation previous to this. ALLERGIES: To codeine. SOCIAL HISTORY: Previous heavy smoker, none recently. No significant alcohol use. He resides at [facility]. His daughter is at the bedside. He has good family support. PHYSICAL EXAM: VITAL SIGNS: Blood pressure is 129/60, pulse 57, respirations 14, temperature 36.5, oxygen saturation 100% on 3 L. GENERAL: He is a mildly overweight but very pleasant 81-year-old w antonella male who is resting comfortably, in no acute distress. HEENT: Eyes: RUDY, EOMI. Throat show s no erythema or tonsillar hypertrophy. NECK: Supple. No cervical adenopathy. HEART: Irregular, irregular with a 2/6 systolic murmur at left sternal border without radiation. LUNGS: Diminished breath sounds but no wheeze. He has mild prolongation of expiratory phase. ABDOMEN: Soft, nontend er. Bowel sounds are present in all 4 quadrants. EXTREMITIES: No clubbing, cyanosis, or edema. LABORATORIES: INR is 1.43. Glucose is 127. Other labs are currently pending. IMPRESSION: 1. Status post cspkj-kif-ldgw amputation on the left. 2. History of a previous below-knee amputation on the right. 3. Noninsulin dependent diabetes. 4. Congestive heart failure. 5. Atrial fibrillation. 6. Chronic renal insufficiency. 7. Aortic stenosis. 8. Hypertension. 9. Gastroesophageal reflux disease. 10. Severe peripheral vascular disease. RECOMMENDATIONS: 1. Aggressive blood sugar control. 2. DVT and PE prophylaxis. 3. Stress ulcer prophylaxis. 4. Adequate pain control. 5. Aggressive wound care. /[id number]/MODL
[2017-02-14] MEDS ORDERED: INSULIN LISPRO 100 UNIT/ML SC SCH (18:00)
--- NOTE | 2017-02-14 18:25 | GOP ---
[f rep st] OPERATIVE REPORT DATE OF OPERATION: 02/14/2017 SURGEON: Stefanie Vuong MD BEAVER TRAPPER: REESE Beltran ANESTHESIA: General. ANESTHESIOLOGIST: Geraldo Plaza MD PREOPERATIVE DIAGNOSIS: Osteomyelitis, peripheral vascular disease, and chronic nonhealing wound, left lower extremity. POSTOPERATIVE DIAGNOSIS: Osteomyelitis, peripheral vascular disease, and chronic nonhealing wound, left lower extremity. PROCEDURE PERFORMED: Haysx-vtz-riqr amputation, left leg. FINDINGS: No unusual findings. ESTIMATED BLOOD LOSS: 50 cc. INDICATIONS: This is an 81-year-old man with known peripheral vascular disease with no hpjgh-ige-qcmr revascularization options. He initially presented with an infected wound and transmetatarsal amputation was performed. As his other imaging was out of state, I subsequently obtained a CTA with runoff, and discussed the case with him and his family as well as his previous vascular surgeon. Patient elected to proceed with cieop-ekb-dyak amputation. DESCRIPTION OF PROCEDURE: The patient was brought into the operating room, placed supine on the table, and general anesthesia was administered. His leg was prepped and draped in the usual sterile fashion. I made an incision over the anterior aspect of his thigh approximately 3 fingerbreadths above the knee and continued this posteriorly as a fishmouth. I dissected down through the subcutaneous tissues. I identified the greater saphenous vein, which was ligated with 0 Vicryl and divided. The muscle groups over the anterior and medial thigh were divided with electrocautery at the same level of the skin. The neurovascular bundle was identified on the medial aspect of the thigh. The popliteal artery, veins were isolated and ligated with 0 Vicryl. The sciatic nerve was ligated with 0 Vicryl and divided. Once the muscles were free around the femur, I then elevated the periosteum and transected the femur about 5 cm above the skin flap with a saw. I then smoothed it with a file. Next, I continued my division of the posterior thigh and divided it with electrocautery. I closed the fascia with interrupted 2-0 Vicryl and included a muscle flap to protect the stump. I approximated dermis with 3-0 Vicryl. I closed skin with danielle. I placed an incisional wound VAC. He tolerated the procedure very well. /[id number]/MODL MTDD
[2017-02-14] MEDS: SENNOSIDES/DOCUSATE SODIUM TAB PO SCH (19:53)
[2017-02-14] MEDS: DONEPEZIL HCL 5 MG TAB PO SCH (19:53)
[2017-02-14] MEDS: GABAPENTIN 300 MG CAP PO SCH (19:53)
[2017-02-14] MEDS: ATORVASTATIN CALCIUM 40 MG TAB PO SCH (19:53)
[2017-02-14] MEDS: MELATONIN 3 MG TAB PO SCH (19:54)
[2017-02-14] MEDS: METOPROLOL TARTRATE 25 MG TAB PO SCH (19:54)
[2017-02-14] MEDS ORDERED: NON-FORMULARY NEW DRUG (Donepezil Hcl [Aricept] 10 MG) PO SCH (21:00)
[2017-02-14] MEDS ORDERED: morphINE SR 15 MG TAB PO SCH (21:00)
[2017-02-15] MEDS: oxyCODONE IR 5 MG TAB PO PRN ×4 (05:48→19:30)
[2017-02-15 06:33] LABS: % IMMATURE GRANULYOCYTES 0.9 % (0.0-1.1); ABSOLUTE IMMATURE GRANULOCYTES 0.09 10^3/uL (0.00-0.10); ADD DIFF? NO; ADD MORPH? NO; ADD SCAN? NO; ATYPICAL LYMPHOCYTE FLAG 0 (0-99); FRAGMENT RBC FLAG 0 (0-99); HEMATOCRIT 28.2 % (40.0-51.0); HEMOGLOBIN 8.4 g/dL (13.7-17.5); LEFT SHIFT FLG 10 (0-99); LIPEMIA HEMOLYSIS FLAG 70 (0-99); MEAN CELL HEMOGLOBIN 25.1 pg (27.9-34.1); MEAN CELL HEMOGLOBIN CONCENTR. 29.8 g/dL (32.4-36.7); MEAN CELL VOLUME 84.2 fL (81.5-99.8); MEAN PLATELET VOLUME 9.9 fL (8.7-11.7); PLATELET CLUMPS FLAG 0 (0-99); PLATELET COUNT 212 10^3/uL (150-400); RED BLOOD CELL COUNT 3.35 10^6/uL (4.40-6.38)
[2017-02-15 06:45] LABS: INR 1.56 (0.83-1.16); PROTIME(PATIENT) 18.7 SEC (12.0-15.0)
[2017-02-15 07:11] LABS: ANION GAP 8 mEq/L (8-16); CALCIUM 8.5 mg/dL (8.5-10.4); CARBON DIOXIDE 23 mEq/l (22-31); CHLORIDE 100 mEq/L (97-110); CHOLESTEROL 97 mg/dL (140-220); CHOLESTEROL/HDL RATIO 4.22 RATIO (1.00-4.97); CREATININE 1.4 mg/dL (0.7-1.3); GLOMERULAR FILTRATION RATE 49; GLUCOSE 136 mg/dL (70-100); HIGH DENSITY LIPOPROTEIN 23 mg/dL (40-65); LDL/HDL RATIO 2.43 RATIO (1.00-3.64); LOW DENSITY LIPOPROTEIN 56 mg/dL (80-100); NON-HIGH DENSITY LIPOPROTEIN 74 mg/dL (90-129); POTASSIUM 5.3 mEq/L (3.5-5.2); SODIUM 131 mEq/L (134-144); TRIGLYCERIDE 94 mg/dL (40-150); VERY LOW DENSITY LIPOPROTEINS 18 mg/dL (8-25)
[2017-02-15] MEDS: glipiZIDE 5 MG TAB PO SCH (08:20)
[2017-02-15] MEDS: SENNOSIDES/DOCUSATE SODIUM TAB PO SCH ×2 (08:20→20:17)
[2017-02-15] MEDS: METOPROLOL TARTRATE 25 MG TAB PO SCH ×2 (08:20→20:13)
[2017-02-15] MEDS: ENOXAPARIN 40 MG/0.4 ML SYR SC SCH (08:22)
[2017-02-15] MEDS: POLYETHYLENE GLYCOL 3350 17 GM PKT PO SCH (08:22)
[2017-02-15] MEDS: FERROUS SULFATE 325 MG TAB PO SCH (08:22)
[2017-02-15] MEDS: INSULIN LISPRO 100 UNIT/ML SC SCH ×4 (08:25→21:51)
[2017-02-15] MEDS: ACETAMINOPHEN 325 MG TAB PO PRN (08:42)
--- NOTE | 2017-02-15 11:17 | SOAPPROG ---
SOAP Progress Note Assessment/Plan: Assessment: 81yo M c multiple comorbidities POD#1 s/p L AKA for chronic nonhealing wound and severe PVD without revasc. options. Dementia. Pain controlled. DC precedex. PO oxy with IV breakthrough. Continue neurontin Wound vac intact - will remain in place x 1 week or until day of discharge Path pending Appreciate hospitalist management of comorbidities Dispo: OK to transfer to med surg. PT/OT for upper body and transfers S: Resting comfortably. Pain is controlled. Usual humerous self. O: Laying in bed, comfortable, NAD No increased WOB No peripheral edema R BKA L AKA with wound vac intact. No surrounding erythema or evidence of infection. Objective: Vital Signs Temp Pulse Resp BP Pulse Ox 36.3 C 83 17 137/63 H 98 02/15/17 07:57 02/15/17 08:20 02/15/17 07:57 02/15/17 08:20 02/15/17 07:57 Laboratory Results 02/15/17 06:24 02/15/17 06:24 02/14/17 02/15/17 02/16/17 05:59 05:59 05:59 Intake Total 1700 Output Total 200 300 Balance 1500 -300 PT 18.7 SEC (12.0-15.0) H 02/15/17 06:24 INR 1.56 (0.83-1.16) H 02/15/17 06:24 ICD10 Worksheet Patient Problems: Problems Problem Status Onset Chronic wound of extremity Acute
--- NOTE | 2017-02-15 15:36 | HOSPPROG ---
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 Peripheral arterial disease. Acute on chronic, CT angiogram from 02/06/2017 demonstrating occlusion of the femoral and popliteal arteries, thus resulting in the decision to perform an above the knee amputation -recommend restarting peripheral arterial disease medications once bleeding risk has reduced, in particular anti-platelet medication, statin -LDL at goal -postoperative management of left lower extremity AKA under the general surgery management with wound VAC in place 2. Chronic pain with continuous opiate dependency. 3. Chronic kidney disease stage 3 4. Anemia of chronic kidney disease. Given risk of acute blood loss anemia, get serum hemoglobin level tomorrow a.m. or sooner if evidence of significant blood loss 5. suspected atelectasis. Patient with an SpO2 of 79% on room air following surgery, suspect atelectasis, give incentive spirometer 6. congestive heart failure. Chronic, unclear type, no evidence of acute exacerbation, continue to monitor I and O 7. Permanent atrial fibrillation. continue to monitor on telemetry for evidence of acute rapid ventricular response, continue on beta-eliud, continue on Coumadin this afternoon -inr still subtherapeutic will cont to monitor INR 8. chronic osteomyelitis. Reviewed outside records including Infectious Disease consultation by Dr. Gabino Shea from 01/16/2017, reports the patient received 7 days of Zosyn and that his previous TMA had negative margins, patient is being treated for Proteus, Pseudomonas, strep pyogenes 9. Hypertension. Chronic, monitor blood pressure and reinitiate home medications 10. Diabetes mellitus type 2. -continue PARR as ordered + correctional insulin as indicated Hospital Medicine service will continue to consult in this patient's daily care. Subjective: pain controlled. no acute complaints Objective: Vital Signs Temp Pulse Resp BP Pulse Ox 36.3 C 83 17 137/63 H 98 02/15/17 07:57 02/15/17 08:20 02/15/17 07:57 02/15/17 08:20 02/15/17 07:57 Laboratory Results 02/15/17 06:24 02/15/17 06:24 02/14/17 02/15/17 02/16/17 05:59 05:59 05:59 Intake Total 1700 360 Output Total 200 300 Balance 1500 60 PT 18.7 SEC (12.0-15.0) H 02/15/17 06:24 INR 1.56 (0.83-1.16) H 02/15/17 06:24 - Physical Exam Constitutional: no apparent distress, appears nourished, not in pain Cardiovascular: regular rate and rhythym, no murmur, rub, or gallop Respiratory: no respiratory distress, no rales or rhonchi, clear to auscultation Gastrointestinal: normoactive bowel sounds, soft, non-tender abdomen, no palpable masses ICD10 Worksheet Patient Problems: Problems Problem Status Onset Chronic wound of extremity Acute
[2017-02-15] MEDS ORDERED: WARFARIN SODIUM 5 MG TAB PO ONE (16:00)
[2017-02-15] MEDS: MELATONIN 3 MG TAB PO SCH (20:11)
[2017-02-15] MEDS: ATORVASTATIN CALCIUM 40 MG TAB PO SCH (20:16)
[2017-02-15] MEDS: DONEPEZIL HCL 5 MG TAB PO SCH (20:16)
[2017-02-15] MEDS: GABAPENTIN 300 MG CAP PO SCH (20:17)
[2017-02-16] MEDS: oxyCODONE IR 5 MG TAB PO PRN ×5 (00:30→21:36)
[2017-02-16 06:17] LABS: INR 1.87 (0.83-1.16); PROTIME(PATIENT) 21.6 SEC (12.0-15.0)
[2017-02-16] MEDS: INSULIN LISPRO 100 UNIT/ML SC SCH ×4 (08:26→22:29)
[2017-02-16] MEDS: ENOXAPARIN 40 MG/0.4 ML SYR SC SCH (09:27)
[2017-02-16] MEDS: SENNOSIDES/DOCUSATE SODIUM TAB PO SCH ×2 (09:27→20:36)
[2017-02-16] MEDS: glipiZIDE 5 MG TAB PO SCH (09:27)
[2017-02-16] MEDS: FERROUS SULFATE 325 MG TAB PO SCH (09:28)
[2017-02-16] MEDS: METOPROLOL TARTRATE 25 MG TAB PO SCH ×2 (09:28→20:32)
[2017-02-16] MEDS: POLYETHYLENE GLYCOL 3350 17 GM PKT PO SCH (09:33)
--- NOTE | 2017-02-16 11:22 | SOAPPROG ---
SOAP Progress Note Assessment/Plan: Assessment: 81yo M c multiple comorbidities POD#2 s/p L AKA for chronic nonhealing wound and severe PVD without revasc. options. Dementia. Pain controlled. PO oxy with IV breakthrough. Continue neurontin Wound vac intact - will remain in place x 1 week or until day of discharge Path pending Appreciate hospitalist management of comorbidities Dispo: Continue inpatient. PT/OT. Will d/c to SNF S: Just about to work with PT. Pain is controlled. No complaints this am O: Laying in bed, comfortable, NAD No increased WOB No peripheral edema R BKA L AKA with wound vac intact. Tender to palpation. No surrounding erythema or evidence of infection. Objective: Vital Signs Temp Pulse Resp BP Pulse Ox 36.9 C 76 18 139/76 H 94 02/16/17 08:00 02/16/17 08:00 02/16/17 08:00 02/16/17 08:00 02/16/17 08:00 Laboratory Results 02/15/17 06:24 02/15/17 06:24 02/15/17 02/16/17 02/17/17 05:59 05:59 05:59 Intake Total 1700 760 Output Total 200 300 Balance 1500 460 PT 21.6 SEC (12.0-15.0) H 02/16/17 05:02 INR 1.87 (0.83-1.16) H 02/16/17 05:02 ICD10 Worksheet Patient Problems: Problems Problem Status Onset Chronic wound of extremity Acute
--- NOTE | 2017-02-16 14:55 | HOSPPROG ---
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 Peripheral arterial disease. Acute on chronic, CT angiogram from 02/06/2017 demonstrating occlusion of the femoral and popliteal arteries, thus resulting in the decision to perform an above the knee amputation -recommend restarting peripheral arterial disease medications once bleeding risk has reduced, in particular anti-platelet medication, statin -LDL at goal -postoperative management of left lower extremity AKA under the general surgery management with wound VAC in place 2. Chronic pain with continuous opiate dependency. 3. Chronic kidney disease stage 3 4. Anemia of chronic kidney disease. Given risk of acute blood loss anemia, get serum hemoglobin level tomorrow a.m. or sooner if evidence of significant blood loss 5. suspected atelectasis. Patient with an SpO2 of 79% on room air following surgery, suspect atelectasis, give incentive spirometer 6. congestive heart failure. Chronic, unclear type, no evidence of acute exacerbation, continue to monitor I and O 7. Permanent atrial fibrillation. continue to monitor on telemetry for evidence of acute rapid ventricular response, continue on beta-eliud, continue on Coumadin this afternoon -inr still subtherapeutic will cont to monitor INR 8. chronic osteomyelitis. Reviewed outside records including Infectious Disease consultation by Dr. Gabino Shea from 01/16/2017, reports the patient received 7 days of Zosyn and that his previous TMA had negative margins, patient is being treated for Proteus, Pseudomonas, strep pyogenes 9. Hypertension. Chronic, monitor blood pressure and reinitiate home medications 10. Diabetes mellitus type 2. -continue PARR as ordered + correctional insulin as indicated Hospital Medicine service will continue to consult in this patient's daily care. Subjective: reports out of control pain left bka. no chest pain. no sob. no fever or chills Objective: Vital Signs Temp Pulse Resp BP Pulse Ox 36.9 C 76 18 139/76 H 94 02/16/17 08:00 02/16/17 08:00 02/16/17 08:00 02/16/17 08:00 02/16/17 08:00 Laboratory Results 02/15/17 06:24 02/15/17 06:24 02/15/17 02/16/1717 05:59 05:59 05:59 Intake Total 1700 760 Output Total 200 300 Balance 1500 460 PT 21.6 SEC (12.0-15.0) H 02/16/17 05:02 INR 1.87 (0.83-1.16) H 02/16/17 05:02 - Physical Exam Constitutional: no apparent distress, appears nourished, not in pain Cardiovascular: regular rate and rhythym, no murmur, rub, or gallop Respiratory: no respiratory distress, no rales or rhonchi, clear to auscultation Gastrointestinal: normoactive bowel sounds, soft, non-tender abdomen, no palpable masses ICD10 Worksheet Patient Problems: Problems Problem Status Onset Chronic wound of extremity Acute
[2017-02-16] MEDS: WARFARIN SODIUM 2.5 MG TAB PO SCH (16:15)
[2017-02-16] MEDS: MELATONIN 3 MG TAB PO SCH (20:31)
[2017-02-16] MEDS: ATORVASTATIN CALCIUM 40 MG TAB PO SCH (20:32)
[2017-02-16] MEDS: GABAPENTIN 300 MG CAP PO SCH (20:36)
[2017-02-16] MEDS: DONEPEZIL HCL 5 MG TAB PO SCH (20:37)
[2017-02-17] MEDS: SENNOSIDES/DOCUSATE SODIUM TAB PO SCH (08:48)
[2017-02-17] MEDS: glipiZIDE 5 MG TAB PO SCH (08:48)
[2017-02-17] MEDS: FERROUS SULFATE 325 MG TAB PO SCH (08:49)
[2017-02-17] MEDS: METOPROLOL TARTRATE 25 MG TAB PO SCH (08:49)
[2017-02-17] MEDS: POLYETHYLENE GLYCOL 3350 17 GM PKT PO SCH (08:50)
[2017-02-17] MEDS: oxyCODONE IR 5 MG TAB PO PRN ×3 (08:54→16:55)
[2017-02-17] MEDS ORDERED: ENOXAPARIN 80 MG/0.8 ML SYR SC SCH (09:00)
[2017-02-17] MEDS: INSULIN LISPRO 100 UNIT/ML SC SCH ×2 (09:00→12:48)
[2017-02-17] MEDS ORDERED: LIDOCAINE 5% 1 EA PATCH TD SCH (09:15)
--- NOTE | 2017-02-17 11:47 | HOSPPROG ---
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 Peripheral arterial disease. Acute on chronic, CT angiogram from 02/06/2017 demonstrating occlusion of the femoral and popliteal arteries, thus resulting in the decision to perform an above the knee amputation -recommend restarting peripheral arterial disease medications once bleeding risk has reduced, in particular anti-platelet medication, statin -LDL at goal -postoperative management of left lower extremity AKA under the general surgery management with wound VAC in place 2. Chronic pain with continuous opiate dependency. 3. Chronic kidney disease stage 3 4. Anemia of chronic kidney disease. Given risk of acute blood loss anemia, get serum hemoglobin level tomorrow a.m. or sooner if evidence of significant blood loss 5. suspected atelectasis. Patient with an SpO2 of 79% on room air following surgery, suspect atelectasis, give incentive spirometer 6. congestive heart failure. Chronic, unclear type, no evidence of acute exacerbation, continue to monitor I and O 7. Permanent atrial fibrillation. continue to monitor on telemetry for evidence of acute rapid ventricular response, continue on beta-eliud, continue on Coumadin this afternoon -inr still subtherapeutic will cont to monitor INR 8. chronic osteomyelitis. Reviewed outside records including Infectious Disease consultation by Dr. Gabino Shea from 01/16/2017, reports the patient received 7 days of Zosyn and that his previous TMA had negative margins, patient is being treated for Proteus, Pseudomonas, strep pyogenes 9. Hypertension. Chronic, monitor blood pressure and reinitiate home medications 10. Diabetes mellitus type 2. -continue PARR as ordered + correctional insulin as indicated Hospital Medicine service will continue to consult in this patient's daily care. patient appears to be stable for transfer to a long term facility when placement is obtained Subjective: improving pain in left BKA wound. Denies any fevers or chills. Tolerating a regular diet. Denies any chest pain or shortness of breath. Objective: Vital Signs Temp Pulse Resp BP Pulse Ox 36.6 C 90 20 152/99 H 95 02/17/17 08:00 02/17/17 08:00 02/17/17 08:00 02/17/17 08:00 02/17/17 08:00 Laboratory Results 02/15/17 06:24 02/15/17 06:24 02/16/17 02/17/17 02/18/17 05:59 05:59 05:59 Intake Total 760 Output Total 300 300 Balance 460 -300 PT 21.6 SEC (12.0-15.0) H 02/16/17 05:02 INR 1.87 (0.83-1.16) H 02/16/17 05:02 - Physical Exam Constitutional: no apparent distress, appears nourished, not in pain Cardiovascular: regular rate and rhythym, no murmur, rub, or gallop Respiratory: no respiratory distress, no rales or rhonchi, clear to auscultation Gastrointestinal: normoactive bowel sounds, soft, non-tender abdomen, no palpable masses ICD10 Worksheet Patient Problems: Problems Problem Status Onset Chronic wound of extremity Acute
[2017-02-17 12:09] VITALS: RESP 18
[2017-02-17] MEDS: ACETAMINOPHEN 325 MG TAB PO PRN (12:49)
[2017-02-17 13:00] LABS: INR 2.31 (0.83-1.16); PROTIME(PATIENT) 25.6 SEC (12.0-15.0)
--- NOTE | 2017-02-17 14:08 | SOAPPROG ---
SOAP Progress Note Assessment/Plan: Assessment: 81yo M c multiple comorbidities POD#3 s/p L AKA for chronic nonhealing wound and severe PVD without revasc. options. Dementia. Pain controlled. PO oxy. Lidoderm patch. Neurontin Wound vac intact - remove today and applied surgical site dressing Path pending Appreciate hospitalist management of comorbidities INR therapeutic - DC lovenox Dispo: DC to [facility] today. PT/OT. F/u with Dr. Vuong this friday S: Eating breakfast. Pain is controlled. No complaints this am O: Sitting up in bed, comfortable, NAD No increased WOB No peripheral edema R BKA L AKA with wound vac intact. Tender to palpation. No surrounding erythema or evidence of infection. 02/17/17 13:47 Objective: Vital Signs Temp Pulse Resp BP Pulse Ox 36.7 C 74 18 112/72 93 02/17/17 12:00 02/17/17 12:00 02/17/17 12:00 02/17/17 12:00 02/17/17 12:00 Laboratory Results 02/15/17 06:24 02/15/17 06:24 02/16/17 02/17/17 02/18/17 05:59 05:59 05:59 Intake Total 760 Output Total 300 300 Balance 460 -300 PT 25.6 SEC (12.0-15.0) H 02/17/17 12:44 INR 2.31 (0.83-1.16) H 02/17/17 12:44 ICD10 Worksheet Patient Problems: Problems Problem Status Onset Chronic wound of extremity Acute
--- NOTE | 2017-02-17 14:27 | PDIAF ---
- Diagnosis Diagnosis: LLE chronic wound, severe PVD Code Status: Full Code - Medication Management Discharge Medications: Medications to Continue on Transfer Atorvastatin Calcium [Lipitor 40 mg (*)] 40 mg PO HS 01/10/17 [Last Taken 21:00] Calcium Carb, Citrate/Vit D3 [Calcium + D3 ER Tablet] 1 each PO DAILY 01/10/17 [ Last Taken 02/12/17] Carboxymethylcellulose Sodium [Lubricant Dry Eye Relief] 1 drop EACHEYE Q6HRS PRN 01/10/17 [Last Taken Unknown] Donepezil HCl [Aricept] 10 mg PO HS 01/10/17 [Last Taken 01/09/17 20:00] Ferrous Sulfate [Ferrous Sulf 325 MG (*)] 325 mg PO DAILY 01/10/17 [Last Taken 01/10/17 08:00] Lidocaine 2% Jelly [Lidocaine 2% Jelly (*)] 1 rajeev TP BID PRN 01/10/17 [Last Taken Unknown] Metoprolol Tartrate [Lopressor 25 mg (*)] 12.5 mg PO BID 01/10/17 [Last Taken ] Morphine Sulfate [Ms Contin] 15 mg PO HS 01/10/17 [Last Taken 01/09/17 21:00] Multivitamins [Multivitamin (*)] 1 each PO DAILY 01/10/17 [Last Taken 02/12/17] Polyethylene Glycol 3350 [Miralax 17 gm (*)] 17 gm PO DAILY 01/10/17 [Last Taken 01/10/17 09:00] glipiZIDE [Glipizide] 5 mg PO DAILY 01/10/17 [Last Taken 02/14/17] Diclofenac Sodium 1% [Voltaren Gel (*)] 2 rajeev TP QID PRN 02/12/17 [Last Taken Unknown] Ergocalciferol [Vitamin D2 (*)] 50,000 unit PO Q30D 02/12/17 [Last Taken ] Gabapentin [Neurontin 300 MG (*)] 600 mg PO HS 02/12/17 [Last Taken Unknown] Herbals/Supplements -Info Only 1 ea PO DAILY 02/12/17 [Last Taken Unknown] Sennosides/Docusate Sodium [Senna-S Tablet] 1 each PO BID PRN 02/12/17 [Last Taken Unknown] oxyCODONE IR [Oxycodone Ir (*)] 5 - 10 mg PO Q4HRS PRN 02/12/17 [Last Taken Unknown] Warfarin Sodium [Coumadin 2.5MG (*)] 2.5 mg PO DAILY16 02/14/17 [Last Taken ] Acetaminophen [Tylenol 325mg (*)] 650 mg PO Q6 PRN #0 tab 02/17/17 [Last Taken Unknown] Lidocaine 5% [Lidoderm 5% Patch (*)] 1 ea TD DAILY #0 patch 02/17/17 [Last Taken Unknown] Discharge Medications: Refer to the Discharge Home Medication list for PRN reason. - Orders Services needed: Registered Nurse, Master Training Associate, Physical Therapy, Occupational Therapy Diet Recommendation: ADA 2000 consistent carb Diet Texture: Regular Texture Diet Wound Care Instructions: change outer dressing as needed. can remain in place until his post-op visit - Follow Up Care Current Providers and Referrals: Doctor Not,On Staff, [Primary Care Provider] - Stefanie Vuong MD [Medical Doctor] - 02/21/17 2:15 pm
[2017-02-17 15:15] VITALS: BP 124/53; PULSE 70; TEMP 98.6; O2SAT 94
[2017-02-17] MEDS: WARFARIN SODIUM 2.5 MG TAB PO SCH (15:44)
[2017-02-17] MEDS ORDERED: PATCH REMOVAL 1 EA PATCH TD SCH (21:00)
== END 2017-02-17 18:18 | DRG 240 ==
LOC: F3N 09:14 → F2N 14:13 → F3E 02-15 18:24
PROVIDERS: ADMIT Surgery; ATTEND Surgery
PROC: 0Y6D0Z3 Detachment at Left Upper Leg, Low, Open Approach (ICD-10-PCS; principal; 2017-02-14 11:00)
DX: I73.9 Peripheral vascular disease, unspecified (principal); J98.11 Atelectasis; M86.60 Other chronic osteomyelitis, unspecified site; G89.29 Other chronic pain; F11.20 Opioid dependence, uncomplicated; D63.1 Anemia in chronic kidney disease; I13.0 Hypertensive heart and chronic kidney disease with heart failure and stage 1 through stage 4 chronic kidney disease, or unspecified chronic kidney disease; I50.9 Heart failure, unspecified; N18.3 Chronic kidney disease, stage 3 (moderate); E11.22 Type 2 diabetes mellitus with diabetic chronic kidney disease; I48.2 Chronic atrial fibrillation; K21.9 Gastro-esophageal reflux disease without esophagitis; R41.3 Other amnesia; N40.0 Benign prostatic hyperplasia without lower urinary tract symptoms; I35.0 Nonrheumatic aortic (valve) stenosis; Z79.01 Long term (current) use of anticoagulants; Z87.891 Personal history of nicotine dependence; Z89.511 Acquired absence of right leg below knee
CPT/HCPCS: 97163-GP; 97167-GO; G8978-GP-CL; G8979-GP-CK; G8987-GO-CM; G8988-GO-CJ; J0690; J1650; J1815; J2001; J2370; J2405; J2704; J3010